=== PATIENT | female | born 1985 | race Two or more races ===

== ENCOUNTER 2016-08-04 15:28 | Emergency (ER) | payer OTHER ==
[2016-08-04] MEDS ORDERED: HYDROmorphone 1 MG/ML 1 ML SYRINGE IVP STA (15:42)
[2016-08-04] MEDS ORDERED: SODIUM CHLORIDE 0.9% 1,000 ML IV STA ×2 (15:42)
[2016-08-04] MEDS ORDERED: ONDANSETRON 4 MG/2 ML VIAL IVP STA (15:42)
[2016-08-04] MEDS ORDERED: KETOROLAC 30 MG/ML 1 ML VIAL IVP STA (15:42)
--- NOTE | 2016-08-04 15:45 | ED ---
General Adult HPI - General Chief complaint: Abdominal Pain Stated complaint: R side pain Time Seen by Provider: 08/04/16 15:37 Source: patient, RN notes reviewed Mode of arrival: ambulatory Limitations: no limitations - History of Present Illness Initial comments: Patient's a 31-year-old female is significant past medical history for kidney stones, who presents emergency room today with a chief complaint of right-sided flank pain that started this morning. Patient does admit that she's had increased pain and pressure on urination. She does admit that she believes she may have passed a kidney stone earlier today but is still having pain right flank area. She denies any other associated symptoms or complaints at this time. Patient denies any recent fever, chills, shortness of breath, chest pain, nausea or vomiting, numbness or tingling, constipation or diarrhea, headaches or visual changes, or any other complaints. - Related Data Previous Rx's Medication Instructions Recorded Ciprofloxacin HCl [Cipro] 500 mg PO Q12HR #14 tablet 12/09/15 Phenazopyridine [Pyridium] 100 mg PO TID #6 tablet 12/09/15 Hydrocodone/Acetaminophen [[place] 1 each PO Q6HR PRN #20 tab 08/04/16 5-325] Ibuprofen [Motrin] 600 mg PO Q6HR PRN #40 day 08/04/16 Ondansetron Odt [Zofran ODT] 4 mg PO Q8HR PRN #20 tab 08/04/16 Tamsulosin [Flomax] 0.4 mg PO DAILY #10 cap 08/04/16 Allergies Allergy/AdvReac Type Severity Reaction Status Date / Time Sulfa (Sulfonamide Allergy Severe hives Verified 12/09/15 18:16 Antibiotics) sulfamethoxazole Allergy Unknown Verified 12/09/15 18:16 [From Bactrim] trimethoprim [From Bactrim] Allergy Unknown Verified 12/09/15 18:16 Review of Systems ROS Statement: Those systems with pertinent positive or pertinent negative responses have been documented in the HPI. ROS Other: All systems not noted in ROS Statement are negative. Past Medical History Past Medical History: Thyroid Disorder Additional Past Medical History / Comment(s): kidney stone hospitalization History of Any Multi-Drug Resistant Organisms: None Reported Past Surgical History: Tubal Ligation Additional Past Surgical History / Comment(s): d&c Past Psychological History: Anxiety, Depression Smoking Status: Current every day smoker Past Alcohol Use History: Occasional Past Drug Use History: None Reported - Past Family History Mother Family Medical History: Cancer, Diabetes Mellitus General Exam - General Exam Comments Initial Comments: General: The patient is awake and alert, in no distress, and does not appear acutely ill. Eye: Pupils are equal, round and reactive to light, extra-ocular movements are intact. No nystagmus. There is normal conjunctiva bilaterally. No signs of icterus. Ears, nose, mouth and throat: There are moist mucous membranes and no oral lesions. Neck: The neck is supple, there is no tenderness or JVD. Cardiovascular: There is a regular rate and rhythm. No murmur, rub or gallop is appreciated. Respiratory: Lungs are clear to auscultation, respirations are non-labored, breath sounds are equal. No wheezes, stridor, rales, or rhonchi. Gastrointestinal: Soft, non-distended, non-tender abdomen without masses or organomegaly noted. There is no rebound or guarding present. No CVA tenderness. Bowel sounds are unremarkable. Musculoskeletal: Normal ROM, no tenderness. Strength 5/5. Sensation intact. Pulses equal bilaterally 2+. Neurological: A&O x 3. CN II-XII intact, There are no obvious motor or sensory deficits. Coordination appears grossly intact. Speech is normal. Skin: Skin is warm and dry and no rashes or lesions are noted. Psychiatric: Cooperative, appropriate mood & affect, normal judgment. Limitations: no limitations Course Vital Signs 08/04/16 08/04/16 15:34 16:52 Temperature 98.2 F 97.6 F Pulse Rate 101 H 70 Respiratory 20 16 Rate Blood Pressure 124/80 119/71 O2 Sat by Pulse 98 99 Oximetry Medical Decision Making - Medical Decision Making Patient reexamined at this time shows no signs of distress. Patient's labs have been reviewed. Small amount of blood in her urinalysis no sign of infection. Patient resting comfortable at this time. Does have history of kidney stones will be treated for kidney stone and advised follow-up with urology or return to emergency room if any symptoms increase or worsen or for any other concerns. - Lab Data Result diagrams: 08/04/16 16:00 08/04/16 16:00 Lab Results 08/04/16 08/04/16 08/04/16 Range/Units 16:00 16:00 16:00 WBC 9.2 (3.8-10.6) k/uL RBC 4.30 (3.80-5.40) m/uL Hgb 13.9 (11.4-16.0) gm/dL Hct 39.9 (34.0-46.0) % MCV 92.8 (80.0-100.0) fL MCH 32.4 (25.0-35.0) pg MCHC 35.0 (31.0-37.0) g/dL RDW 12.5 (11.5-15.5) % Plt Count 268 (150-450) k/uL Neutrophils % 65 % Lymphocytes % 26 % Monocytes % 4 % Eosinophils % 2 % Basophils % 1 % Neutrophils # 6.0 (1.3-7.7) k/uL Lymphocytes # 2.4 (1.0-4.8) k/uL Monocytes # 0.4 (0-1.0) k/uL Eosinophils # 0.2 (0-0.7) k/uL Basophils # 0.1 (0-0.2) k/uL Sodium 143 (137-145) mmol/L Potassium 4.2 (3.5-5.1) mmol/L Chloride 112 H (98-107) mmol/L Carbon Dioxide 21 L (22-30) mmol/L Anion Gap 10 mmol/L BUN 14 (7-17) mg/dL Creatinine 0.70 (0.52-1.04) mg/dL Est GFR (MDRD) Af Amer >60 (>60 ml/min/1.73 sqM) Est GFR (MDRD) Non-Af >60 (>60 ml/min/1.73 sqM) Glucose 89 (74-99) mg/dL Calcium 9.0 (8.4-10.2) mg/dL Total Bilirubin 0.4 (0.2-1.3) mg/dL AST 23 (14-36) U/L ALT 25 (9-52) U/L Alkaline Phosphatase 48 (38-126) U/L Total Protein 7.0 (6.3-8.2) g/dL Albumin 4.2 (3.5-5.0) g/dL Amylase 72 (30-110) U/L Lipase 121 (23-300) U/L Urine Color Urine Appearance (Clear) Urine pH (5.0-8.0) Ur Specific [place] (1.001-1.035) Urine Protein (Negative) Urine Glucose (UA) (Negative) Urine Ketones (Negative) Urine Blood (Negative) Urine Nitrite (Negative) Urine Bilirubin (Negative) Urine Urobilinogen (<2.0) mg/dL Ur Leukocyte Esterase (Negative) Urine RBC (0-5) /hpf Urine WBC (0-5) /hpf Ur Squamous Epith Cells (0-4) /hpf Urine Mucus (None) /hpf Urine HCG, Qual Not Detected (Not Detectd) 08/04/16 Range/Units 16:00 WBC (3.8-10.6) k/uL RBC (3.80-5.40) m/uL Hgb (11.4-16.0) gm/dL Hct (34.0-46.0) % MCV (80.0-100.0) fL MCH (25.0-35.0) pg MCHC (31.0-37.0) g/dL RDW (11.5-15.5) % Plt Count (150-450) k/uL Neutrophils % % Lymphocytes % % Monocytes % % Eosinophils % % Basophils % % Neutrophils # (1.3-7.7) k/uL Lymphocytes # (1.0-4.8) k/uL Monocytes # (0-1.0) k/uL Eosinophils # (0-0.7) k/uL Basophils # (0-0.2) k/uL Sodium (137-145) mmol/L Potassium (3.5-5.1) mmol/L Chloride (98-107) mmol/L Carbon Dioxide (22-30) mmol/L Anion Gap mmol/L BUN (7-17) mg/dL Creatinine (0.52-1.04) mg/dL Est GFR (MDRD) Af Amer (>60 ml/min/1.73 sqM) Est GFR (MDRD) Non-Af (>60 ml/min/1.73 sqM) Glucose (74-99) mg/dL Calcium (8.4-10.2) mg/dL Total Bilirubin (0.2-1.3) mg/dL AST (14-36) U/L ALT (9-52) U/L Alkaline Phosphatase (38-126) U/L Total Protein (6.3-8.2) g/dL Albumin (3.5-5.0) g/dL Amylase (30-110) U/L Lipase (23-300) U/L Urine Color Yellow Urine Appearance Clear (Clear) Urine pH 6.5 (5.0-8.0) Ur Specific [place] 1.018 (1.001-1.035) Urine Protein Negative (Negative) Urine Glucose (UA) Negative (Negative) Urine Ketones Negative (Negative) Urine Blood Moderate H (Negative) Urine Nitrite Negative (Negative) Urine Bilirubin Negative (Negative) Urine Urobilinogen <2.0 (<2.0) mg/dL Ur Leukocyte Esterase Trace H (Negative) Urine RBC 14 H (0-5) /hpf Urine WBC 3 (0-5) /hpf Ur Squamous Epith Cells 1 (0-4) /hpf Urine Mucus Rare H (None) /hpf Urine HCG, Qual (Not Detectd) Disposition Clinical Impression: Kidney stone Disposition: HOME SELF-CARE Condition: Good Instructions: Kidney Stones (ED) Additional Instructions: Please use medication as discussed. Please follow-up with family doctor in the next 2 days of symptoms have not improved. Please return to emergency room if the symptoms increase or worsen or for any other concerns. Prescriptions: Hydrocodone/Acetaminophen [[place] 5-325] 1 each PO Q6HR PRN #20 tab PRN Reason: Pain Ibuprofen [Motrin] 600 mg PO Q6HR PRN #40 day PRN Reason: Pain Ondansetron Odt [Zofran ODT] 4 mg PO Q8HR PRN #20 tab PRN Reason: Nausea Tamsulosin [Flomax] 0.4 mg PO DAILY #10 cap Referrals: Osmel Stallworth MD [Primary Care Provider] - 1-2 days Time of Disposition: 17:09
[2016-08-04 16:20] LABS: Basophils # (A) 0.1 k/uL (0-0.2); Basophils % (A) 1 %; CH 32.6; CHCM 35.3; Eosinophils # (A) 0.2 k/uL (0-0.7); Eosinophils % (A) 2 %; HCT 39.9 % (34.0-46.0); HDW 2.74; HGB 13.9 gm/dL (11.4-16.0); Luc # (Auto) 0.16; Luc % (Auto) 2; Lymphocytes # (A) 2.4 k/uL (1.0-4.8); Lymphocytes % (A) 26 %; MCH 32.4 pg (25.0-35.0); MCV 92.8 fL (80.0-100.0); Mean Platelet Volume 6.2; Monocytes # (A) 0.4 k/uL (0-1.0); Monocytes % (A) 4 %; Neutrophils % (A) 65 %; RDW 12.5 % (11.5-15.5); WBC 9.2 k/uL (3.8-10.6); WBC (Perox) 9.32
[2016-08-04 16:22] LABS: Appearance,Urine Clear (Clear); Bilirubin,Urine Negative (Negative); Glucose,Urine (UA) Negative (Negative); Ketones,Urine Negative (Negative); Leukocyte Esterase,Urine Trace (Negative); Mucus,Urine Rare /hpf; Nitrite,Urine Negative (Negative); PH, Urine 6.5 (5.0-8.0); Particle Count 1206; Protein,Urine Negative (Negative); RBC,Urine 14 /hpf (0-5); Specific Gravity,Urine 1.018 (1.001-1.035); Squamous Epithelial Cell,Urine 1 /hpf (0-4); UA Billing (MACRO vs. MICRO) MICRO; Urobilinogen,Urine <2.0 mg/dL (<2.0); WBC,Urine 3 /hpf (0-5)
[2016-08-04 16:29] LABS: ALT 25 U/L (9-52); AST 23 U/L (14-36); Alkaline Phosphatase 48 U/L (38-126); Amylase 72 U/L (30-110); Anion Gap 10 mmol/L; Blood Urea Nitrogen 14 mg/dL (7-17); Carbon Dioxide 21 mmol/L (22-30); Chloride 112 mmol/L (98-107); Glucose 89 mg/dL (74-99); Non-African American GFR(MDRD) >60 (>60 ml/min/1.73 sqM); Potassium 4.2 mmol/L (3.5-5.1); Sodium 143 mmol/L (137-145); Total Bilirubin 0.4 mg/dL (0.2-1.3)
--- NOTE | 2016-08-04 16:29 | XR ---
EXAMINATION TYPE: XR KUB DATE OF EXAM: 08/04/2016 4:19 PM COMPARISON: 04/12/2015 HISTORY: Pain TECHNIQUE: 2 views FINDINGS: There is no sign of intestinal obstruction or pneumoperitoneum. Fecal pattern is normal. Th ere is no sign of a mass. There are no pathologic calcifications over the right kidney. There is a 5 mm calcification over lower pole left kidney. IMPRESSION: Nonacute abdomen. Left renal calculus. No change compared to old exam.
[2016-08-04 16:53] VITALS: PULSE 70; RESP 16; TEMP 97.6
[2016-08-04 17:31] VITALS: BP 129/63
== END 2016-08-04 17:31 | disposition home or self-care (01) ==
LOC: EC 15:28
DX: N20.0 Calculus of kidney (principal); Z87.442 Personal history of urinary calculi; F17.200 Nicotine dependence, unspecified, uncomplicated; Z88.2 Allergy status to sulfonamides
CPT/HCPCS: 36415; 80053; 82150; 83690; 85025; 81001; 81025; 74000; 99284; 96374; 96375 ×2; 96361; J2405; J1885; J1170

== ENCOUNTER 2016-09-23 14:58 | Emergency (ER) | payer OTHER ==
[2016-09-23 15:16] VITALS: BP 123/77; PULSE 87; RESP 18; TEMP 98.6
[2016-09-23] MEDS ORDERED: HYDROcodone/APAP 5-325MG 1 EACH TAB PO STA (15:16)
--- NOTE | 2016-09-23 15:18 | ED ---
Back Pain HPI - General Chief Complaint: Back Pain/Injury Stated Complaint: Back Pain Time Seen by Provider: 09/23/16 15:12 Source: patient, RN notes reviewed Limitations: no limitations - History of Present Illness Initial Comments: 31-year-old female presents emergency Department chief complaint severe menstrual cramps. Patient states she has not had a menstrual cycle in 7 months and was just taken off her control she had a tubal ligation in the past. Patient states that she started bleeding this morning is had severe cramping with it. Denies fever, chills, dysuria, flank pain, nausea vomiting diarrhea constipation. She states she tried Midol, Tylenol, ibuprofen without relief. Patient states that she is under she did have severe cramping. Patient denies any recent abdominal surgeries. - Related Data Previous Rx's Medication Instructions Recorded Hydrocodone/Acetaminophen [[place] 1 tab PO Q6HR PRN #15 tab 09/23/16 5-325] Allergies Allergy/AdvReac Type Severity Reaction Status Date / Time Sulfa (Sulfonamide Allergy Severe hives Verified 09/23/16 15:16 Antibiotics) sulfamethoxazole Allergy Unknown Verified 09/23/16 15:16 [From Bactrim] trimethoprim [From Bactrim] Allergy Unknown Verified 09/23/16 15:16 Review of Systems ROS Statement: Those systems with pertinent positive or pertinent negative responses have been documented in the HPI. ROS Other: All systems not noted in ROS Statement are negative. Past Medical History Past Medical History: Thyroid Disorder Additional Past Medical History / Comment(s): kidney stone hospitalization History of Any Multi-Drug Resistant Organisms: None Reported Past Surgical History: Tubal Ligation Additional Past Surgical History / Comment(s): d&c Past Psychological History: Anxiety, Depression Smoking Status: Current every day smoker Past Alcohol Use History: Occasional Past Drug Use History: None Reported - Past Family History Mother Family Medical History: Cancer, Diabetes Mellitus General Exam Limitations: no limitations General appearance: alert, in no apparent distress Head exam: Present: atraumatic, normocephalic, normal inspection Respiratory exam: Present: normal lung sounds bilaterally. Absent: respiratory distress, wheezes, rales, rhonchi, stridor Cardiovascular Exam: Present: regular rate, normal rhythm, normal heart sounds. Absent: systolic murmur, diastolic murmur, rubs, gallop, clicks GI/Abdominal exam: Present: soft, normal bowel sounds. Absent: distended, tenderness, guarding, rebound, rigid Extremities exam: Present: normal inspection, full ROM, normal capillary refill. Absent: tenderness, pedal edema, joint swelling, calf tenderness Back exam: Present: normal inspection, full ROM. Absent: tenderness, CVA tenderness (R), CVA tenderness (L), muscle spasm, paraspinal tenderness, vertebral tenderness Neurological exam: Present: alert, oriented X3, CN II-XII intact Skin exam: Present: warm, dry, intact, normal color. Absent: rash Course Vital Signs 09/23/16 15:12 Temperature 98.6 F Pulse Rate 87 Respiratory 18 Rate Blood Pressure 123/77 O2 Sat by Pulse 99 Oximetry Medical Decision Making - Medical Decision Making 31-year-old female presents emergency Department with chief complaint of severe menstrual cramps. Patient is exam is benign vitals are stable. Patient has no acute evidence of infection no CVA tenderness no abdominal tenderness with palpation. Patient given pain medication for dysmenorrhea. Patient will be advised to follow up with PCP return parameters discussed. Disposition Clinical Impression: Dysmenorrhea Disposition: HOME SELF-CARE Condition: Stable Instructions: Dysmenorrhea (ED) Additional Instructions: Please return to the Emergency Department if symptoms worsen or any other concerns. Prescriptions: Hydrocodone/Acetaminophen [[place] 5-325] 1 tab PO Q6HR PRN #15 tab PRN Reason: Pain Referrals: Raya Aquino MD [Primary Care Provider] - 1-2 days Time of Disposition: 15:18
== END 2016-09-23 15:35 | disposition home or self-care (01) ==
LOC: EC 14:58
DX: N94.6 Dysmenorrhea, unspecified (principal); F17.200 Nicotine dependence, unspecified, uncomplicated; Z88.2 Allergy status to sulfonamides; Z98.51 Tubal ligation status
CPT/HCPCS: 99283

== ENCOUNTER 2016-10-20 11:49 | Emergency (ER) | payer OTHER ==
[2016-10-20 11:55] VITALS: BP 110/74; PULSE 79; RESP 20; TEMP 98.1
--- NOTE | 2016-10-20 12:07 | ED ---
General Adult HPI - General Chief complaint: Anxiety Stated complaint: mental health Time Seen by Provider: 10/20/16 11:50 Source: patient, RN notes reviewed Mode of arrival: ambulatory Limitations: no limitations - History of Present Illness Initial comments: This is a 31-year-old female who presents emergency department with past HISTORY for insomnia anxiety and depression. Patient states when she switched doctors recently they stopped her Celexa and Xanax and trazodone. Patient states she was put on Abilify patient states Abilify has not worked for sleep and does not seem to be helping her anxiety. Patient states when she gets really anxious and depressed gets suicidal and she does not want to get to the point that she is here to have her prescriptions filled until she can follow-up with the psychiatrist for which she has an appointment in about 1 month. Patient states she's can switch back to Dr. Blake in because he did prescribe her these medications. Patient denies any suicidal homicidal thoughts currently. Patient denies any physical complaints today. Patient denies headache patient denies numbness weakness. Patient denies chest pain difficulty breathing first breath per patient denies any recent fever chills or cough. Patient denies abdominal pain patient denies nausea vomiting diarrhea. - Related Data Previous Rx's Medication Instructions Recorded Hydrocodone/Acetaminophen [[place] 1 tab PO Q6HR PRN #15 tab 09/23/16 5-325] ALPRAZolam [Xanax] 0.5 mg PO BID PRN #20 tablet 10/20/16 Citalopram Hydrobromide [CeleXA] 40 mg PO DAILY #10 tab 10/20/16 Allergies Allergy/AdvReac Type Severity Reaction Status Date / Time Sulfa (Sulfonamide Allergy Severe hives Verified 10/20/16 11:55 Antibiotics) sulfamethoxazole Allergy Unknown Verified 10/20/16 11:55 [From Bactrim] trimethoprim [From Bactrim] Allergy Unknown Verified 10/20/16 11:55 Review of Systems ROS Statement: Those systems with pertinent positive or pertinent negative responses have been documented in the HPI. ROS Other: All systems not noted in ROS Statement are negative. Past Medical History Past Medical History: Thyroid Disorder Additional Past Medical History / Comment(s): kidney stone hospitalization History of Any Multi-Drug Resistant Organisms: None Reported Past Surgical History: Tubal Ligation Additional Past Surgical History / Comment(s): d&c Past Psychological History: Anxiety, Depression Smoking Status: Current every day smoker Past Alcohol Use History: Occasional Past Drug Use History: None Reported - Past Family History Mother Family Medical History: Cancer, Diabetes Mellitus General Exam - General Exam Comments Initial Comments: GENERAL: Patient is well-developed and well-nourished. Patient is nontoxic and well- hydrated and is in no acute distress. EYES: The sclera were anicteric and conjunctiva were pink and moist. SKIN: Skin is clear with no lesions or rashes and otherwise unremarkable. NEUROLOGIC: Patient is alert and oriented x3. Cranial nerves II through XII are grossly intact. Motor and sensory are also intact. Normal speech, volume and content. Symmetrical smile. MUSCULOSKELETAL: Normal extremities with adequate strength and full range of motion. No lower extremity swelling or edema. No calf tenderness. LYMPHATICS: No significant lymphadenopathy is noted PSYCHIATRIC: Patient is mildly anxious Limitations: no limitations Course Vital Signs 10/20/16 11:51 Temperature 98.1 F Pulse Rate 79 Respiratory 20 Rate Blood Pressure 110/74 O2 Sat by Pulse 98 Oximetry Disposition Clinical Impression: Anxiety, History of depression Disposition: HOME SELF-CARE Condition: Good Instructions: Generalized Anxiety Disorder (ED) Prescriptions: ALPRAZolam [Xanax] 0.5 mg PO BID PRN #20 tablet PRN Reason: Anxiety Citalopram Hydrobromide [CeleXA] 40 mg PO DAILY #10 tab Referrals: Raya Aquino MD [Primary Care Provider] - 1-2 days Time of Disposition: 12:07
== END 2016-10-20 12:40 | disposition home or self-care (01) ==
LOC: EC 11:49
DX: F41.9 Anxiety disorder, unspecified (principal); F32.9 Major depressive disorder, single episode, unspecified; F17.200 Nicotine dependence, unspecified, uncomplicated; Z88.2 Allergy status to sulfonamides
CPT/HCPCS: 99283

== ENCOUNTER 2016-12-16 20:18 | Emergency (ER) | payer OTHER ==
[2016-12-16 20:51] VITALS: BP 119/65; PULSE 76; RESP 16; TEMP 99
[2016-12-16] MEDS ORDERED: AZITHROMYCIN 500 MG TAB PO STA (21:44)
[2016-12-16] MEDS ORDERED: cefTRIAXone 250 MG VIAL IM STA (21:44)
[2016-12-16] MEDS ORDERED: metroNIDAZOLE 500 MG TAB PO STA (21:44)
--- NOTE | 2016-12-16 22:01 | ED ---
Female Urogenital HPI - General Chief complaint: Urogenital Stated complaint: Vaginal Pain Time Seen by Provider: 12/16/16 21:24 Source: patient Mode of arrival: ambulatory Limitations: no limitations - History of Present Illness Initial comments: patient presents with pain in her vaginal area & discharge. Patient states she has a history of genital warts, was given medication to "burn them off" one week ago. Patient states she took the medication for 3 days, however continues to have pain in the area. Patient states she was seen at [facility] emergency room for the continued pain, was prescribed [id number] medications including topical zinc. Patient states she has not been able to afford the [id number] medications, as she has no money. Patient states that she has also had milky white vaginal discharge that is odorous. Denies vaginal bleeding. Denies . Patient denies history of STDs other than genital herpes. Patient sexually active with one partner, who is here during the visit today. MD Complaint: vaginal discharge, possible STD Onset/Timin -: week(s) Severity: moderate Severity scale (1-10): 5 Quality: burning Consistency: constant Patient : No Associated Symptoms: denies other symptoms - Related Data Sexually active: Yes Home Medications Medication Instructions Recorded Confirmed ARIPiprazole [Abilify] 10 mg PO DAILY 12/16/16 12/16/16 Acyclovir [Zovirax] 200 mg PO DAILY 12/16/16 12/16/16 Ibuprofen [Motrin] 400 mg PO BID PRN 12/16/16 12/16/16 Levothyroxine Sodium [Synthroid] 25 mcg PO DAILY 12/16/16 12/16/16 Previous Rx's Medication Instructions Recorded Citalopram Hydrobromide [CeleXA] 40 mg PO DAILY #10 tab 10/20/16 Allergies Allergy/AdvReac Type Severity Reaction Status Date / Time Sulfa (Sulfonamide Allergy Severe hives Verified 12/16/16 21:49 Antibiotics) sulfamethoxazole Allergy Unknown Verified 12/16/16 21:49 [From Bactrim] trimethoprim [From Bactrim] Allergy Unknown Verified 12/16/16 21:49 Review of Systems ROS Statement: Those systems with pertinent positive or pertinent negative responses have been documented in the HPI. ROS Other: All systems not noted in ROS Statement are negative. Constitutional: Denies: fever, chills, weakness Eyes: Denies: vision change ENT: Denies: throat pain, congestion Respiratory: Denies: cough, dyspnea Cardiovascular: Denies: chest pain, palpitations Endocrine: Denies: fatigue Gastrointestinal: Denies: abdominal pain, nausea, vomiting, diarrhea, constipation Genitourinary: Reports: dysuria, discharge, dyspareunia. Denies: urgency, frequency, hematuria, abnormal menses Skin: Reports: lesions, pruritus. Denies: rash Neurological: Denies: headache, weakness, numbness Past Medical History Past Medical History: Thyroid Disorder Additional Past Medical History / Comment(s): kidney stone hospitalization History of Any Multi-Drug Resistant Organisms: None Reported Past Surgical History: Tubal Ligation Additional Past Surgical History / Comment(s): d&c Past Psychological History: Anxiety, Depression Smoking Status: Current every day smoker Past Alcohol Use History: Occasional Past Drug Use History: None Reported - Past Family History Mother Family Medical History: Cancer, Diabetes Mellitus General Exam - General Exam Comments Initial Comments: sitting up on bed. Patient is tearful. Conversing normally. Not ill appearing. Limitations: no limitations General appearance: alert, anxious Head exam: Present: atraumatic, normocephalic Eye exam: Present: normal appearance, PERRL, EOMI ENT exam: Present: normal external ear exam Neck exam: Present: normal inspection Respiratory exam: Present: normal lung sounds bilaterally. Absent: respiratory distress, wheezes, rales Cardiovascular Exam: Present: regular rate, normal rhythm GI/Abdominal exam: Present: soft. Absent: distended, tenderness, guarding, rebound, rigid External exam: Present: lesions, other (patient appears to have healing vesicular lesions around major and minor labia, no active discharge or bleeding. ) Speculum exam: Present: vaginal discharge, cervical discharge, other (patient with clumped white milky discharge on speculum exam. Appropriate tenderness, no masses appreciated.). Absent: vaginal bleeding By manual exam: Absent: cervical motion tenderness, adnexal tenderness, adnexal mass Neurological exam: Present: alert, oriented X3 Skin exam: Present: vesicles Course Vital Signs 12/16/16 20:48 Temperature 99 F Pulse Rate 76 Respiratory 16 Rate Blood Pressure 119/65 O2 Sat by Pulse 98 Oximetry Medical Decision Making - Medical Decision Making patient is status post treatment for external genital herpes lesions. They appear to be healing at this time. Patient has vaginal discharge, swabs sent to lab. Patient agrees to receive prophylactic treatment for STI's. Patient's sexual partner at bedside advised to be treated with antibiotics. Patient and sexual partner advised not to have sex until both partners are treated and asymptomatic. Pt provided call back number for culture results, phone #[phone]. urinalysis shows no sign of infection, test negative. Patient updated without results. Feels comfortable going home at this time. Patient given prophylactic antibiotics in the ER. We'll call patient back if any positive results on cultures. Patient to follow up with primary care physician, states she has one that she will follow-up with. Return to ED if new or worsening symptoms. Patient understands and agrees. Patient discharged home. - Lab Data Lab Results 12/16/16 12/16/16 12/16/16 Range/Units 21:48 21:48 21:48 Urine Color Yellow Urine Appearance Clear (Clear) Urine pH 5.5 (5.0-8.0) Ur Specific [place] 1.020 (1.001-1.035) Urine Protein Negative (Negative) Urine Glucose (UA) Negative (Negative) Urine Ketones Negative (Negative) Urine Blood Small H (Negative) Urine Nitrite Negative (Negative) Urine Bilirubin Negative (Negative) Urine Urobilinogen <2.0 (<2.0) mg/dL Ur Leukocyte Esterase Negative (Negative) Urine RBC 1 (0-5) /hpf Urine WBC 4 (0-5) /hpf Ur Squamous Epith Cells 1 (0-4) /hpf Urine HCG, Qual Not Detected (Not Detectd) Trichomonas Ag (Rapid) Negative (Negative) Disposition Clinical Impression: Vaginal discharge Disposition: HOME SELF-CARE Condition: Good Instructions: Sexually Transmitted Diseases (ED), Vaginal Discharge (ED) Referrals: Raya Aquino MD [Primary Care Provider] - 1-2 days
[2016-12-16 22:02] LABS: Appearance,Urine Clear (Clear); Bilirubin,Urine Negative (Negative); Glucose,Urine (UA) Negative (Negative); Ketones,Urine Negative (Negative); Leukocyte Esterase,Urine Negative (Negative); Nitrite,Urine Negative (Negative); PH, Urine 5.5 (5.0-8.0); Particle Count 438; Protein,Urine Negative (Negative); RBC,Urine 1 /hpf (0-5); Squamous Epithelial Cell,Urine 1 /hpf (0-4); UA Billing (MACRO vs. MICRO) MICRO; Urobilinogen,Urine <2.0 mg/dL (<2.0); WBC,Urine 4 /hpf (0-5)
== END 2016-12-16 22:47 | disposition home or self-care (01) ==
LOC: EC 20:18
DX: N89.8 Other specified noninflammatory disorders of vagina (principal); F32.9 Major depressive disorder, single episode, unspecified; E07.9 Disorder of thyroid, unspecified; F17.200 Nicotine dependence, unspecified, uncomplicated; Z32.02 Encounter for pregnancy test, result negative; Z98.51 Tubal ligation status; Z98.890 Other specified postprocedural states; Z88.2 Allergy status to sulfonamides; Z79.899 Other long term (current) drug therapy
CPT/HCPCS: 99283 ×2; 96372 ×2; 87591; 87491; 81001; 81025; 87808; 87070; J0696; 87205

== ENCOUNTER 2018-01-19 08:04 | Emergency (ER) | payer BC, OTHER ==
[2018-01-19 08:11] VITALS: RESP 18
[2018-01-19] MEDS ORDERED: SODIUM CHLORIDE 0.9% 1,000 ML IV STA (08:27)
[2018-01-19] MEDS ORDERED: KETOROLAC 30 MG/ML 1 ML VIAL IVP STA ×2 (08:27→11:54)
[2018-01-19] MEDS ORDERED: SODIUM CHLORIDE 0.9% 500 ML 500 ML IV STA (08:27)
--- NOTE | 2018-01-19 08:27 | ED ---
Abdominal Pain HPI - General Chief Complaint: Abdominal Pain Stated Complaint: flank pain Time Seen by Provider: 01/19/18 08:04 Source: patient, EMS, RN notes reviewed Mode of arrival: EMS Limitations: no limitations - History of Present Illness Initial Comments: This is a 32-year-old female with a history of tubal ligation and kidney stones in the past who states she had the onset 3 days ago of right-sided flank pain that now is severe 10/10 sharp in nature and radiates down into her right leg actually. She feels like her bladder is full she's had some dysuria some different smell in her urine. Some frequency. She states it does feel for the most part like previous episodes of kidney stones. He hasn't sweats no fevers or chills. No trauma no other modifying factors MD Complaint: flank pain - Related Data Home Medications Medication Instructions Recorded Confirmed Ibuprofen [Motrin Ib] 400 mg PO Q6H PRN 01/19/18 01/19/18 Previous Rx's Medication Instructions Recorded Hydrocodone/Acetaminophen [[place] 1 each PO Q6HR PRN #20 tab 01/19/18 5-325] Ibuprofen 800 mg PO Q6HR PRN #20 tablet 01/19/18 Allergies Allergy/AdvReac Type Severity Reaction Status Date / Time Sulfa (Sulfonamide Allergy Severe hives Verified 01/19/18 08:34 Antibiotics) sulfamethoxazole Allergy Unknown Verified 01/19/18 08:34 [From Bactrim] trimethoprim [From Bactrim] Allergy Unknown Verified 01/19/18 08:34 Review of Systems ROS Statement: Those systems with pertinent positive or pertinent negative responses have been documented in the HPI. ROS Other: All systems not noted in ROS Statement are negative. Past Medical History Past Medical History: Thyroid Disorder Additional Past Medical History / Comment(s): kidney stone hospitalization History of Any Multi-Drug Resistant Organisms: None Reported Past Surgical History: Tubal Ligation Additional Past Surgical History / Comment(s): d&c Past Psychological History: Anxiety, Depression Smoking Status: Current every day smoker Past Alcohol Use History: Occasional Past Drug Use History: None Reported - Past Family History Mother Family Medical History: Cancer, Diabetes Mellitus General Exam - General Exam Comments Initial Comments: This is a well-developed well-nourished awake alert oriented 3 female Limitations: no limitations General appearance: alert, anxious Head exam: Present: atraumatic, normocephalic, normal inspection Eye exam: Present: normal appearance, PERRL, EOMI. Absent: scleral icterus, conjunctival injection, periorbital swelling ENT exam: Present: normal exam, mucous membranes moist Neck exam: Present: normal inspection. Absent: tenderness, meningismus, lymphadenopathy Respiratory exam: Present: normal lung sounds bilaterally. Absent: respiratory distress, wheezes, rales, rhonchi, stridor Cardiovascular Exam: Present: regular rate, normal rhythm, normal heart sounds. Absent: systolic murmur, diastolic murmur, rubs, gallop, clicks GI/Abdominal exam: Present: soft, tenderness (Mild right flank tenderness), normal bowel sounds. Absent: distended, guarding, rebound, rigid, bruit, pulsatile mass, hernia Rectal exam: Present: deferred Extremities exam: Present: normal inspection, full ROM, normal capillary refill. Absent: tenderness, pedal edema, joint swelling, calf tenderness Back exam: Present: normal inspection, CVA tenderness (R), other (Mild right SI joint area tenderness no step-off or crepitation) Neurological exam: Present: alert, oriented X3, CN II-XII intact Psychiatric exam: Present: normal affect, anxious Skin exam: Present: warm, dry, intact, normal color. Absent: rash Course Vital Signs 01/19/18 08:07 Temperature 98.3 F Pulse Rate 71 Respiratory 18 Rate Blood Pressure 125/70 O2 Sat by Pulse 97 Oximetry Medical Decision Making - Medical Decision Making Patient initially get some improvement in the pain she's having some increased pain the clinical presentation consistent with a passed urinary stone additionally she does have multiple kidney stones. She will be discharged on appropriate medication she is up with her doctor return when necessary we did also discuss so pop she does consume large amounts of soda pop. It was recommended that she - Lab Data Result diagrams: 01/19/18 08:08 01/19/18 08:08 Lab Results 01/19/18 01/19/18 01/19/18 Range/Units 08:08 08:08 08:08 WBC 6.6 (3.8-10.6) k/uL RBC 4.81 (3.80-5.40) m/uL Hgb 14.9 (11.4-16.0) gm/dL Hct 43.2 (34.0-46.0) % MCV 89.8 (80.0-100.0) fL MCH 31.0 (25.0-35.0) pg MCHC 34.5 (31.0-37.0) g/dL RDW 12.4 (11.5-15.5) % Plt Count 221 (150-450) k/uL Neutrophils % 58 % Lymphocytes % 33 % Monocytes % 5 % Eosinophils % 2 % Basophils % 1 % Neutrophils # 3.8 (1.3-7.7) k/uL Lymphocytes # 2.2 (1.0-4.8) k/uL Monocytes # 0.3 (0-1.0) k/uL Eosinophils # 0.2 (0-0.7) k/uL Basophils # 0.0 (0-0.2) k/uL Sodium 142 (137-145) mmol/L Potassium 4.0 (3.5-5.1) mmol/L Chloride 111 H (98-107) mmol/L Carbon Dioxide 24 (22-30) mmol/L Anion Gap 7 mmol/L BUN 12 (7-17) mg/dL Creatinine 0.62 (0.52-1.04) mg/dL Est GFR (CKD-EPI)AfAm >90 (>60 ml/min/1.73 sqM) Est GFR (CKD-EPI)NonAf >90 (>60 ml/min/1.73 sqM) Glucose 106 H (74-99) mg/dL Calcium 9.3 (8.4-10.2) mg/dL Total Bilirubin 0.5 (0.2-1.3) mg/dL AST 18 (14-36) U/L ALT 24 (9-52) U/L Alkaline Phosphatase 67 (38-126) U/L Total Protein 6.9 (6.3-8.2) g/dL Albumin 4.0 (3.5-5.0) g/dL Amylase 55 (30-110) U/L Lipase 64 (23-300) U/L Urine Color Urine Appearance (Clear) Urine pH (5.0-8.0) Ur Specific [place] (1.001-1.035) Urine Protein (Negative) Urine Glucose (UA) (Negative) Urine Ketones (Negative) Urine Blood (Negative) Urine Nitrite (Negative) Urine Bilirubin (Negative) Urine Urobilinogen (<2.0) mg/dL Ur Leukocyte Esterase (Negative) Urine RBC (0-5) /hpf Urine WBC (0-5) /hpf Ur Squamous Epith Cells (0-4) /hpf Urine Bacteria (None) /hpf Urine Mucus (None) /hpf Urine HCG, Qual Not Detected (Not Detectd) 01/19/18 Range/Units 08:08 WBC (3.8-10.6) k/uL RBC (3.80-5.40) m/uL Hgb (11.4-16.0) gm/dL Hct (34.0-46.0) % MCV (80.0-100.0) fL MCH (25.0-35.0) pg MCHC (31.0-37.0) g/dL RDW (11.5-15.5) % Plt Count (150-450) k/uL Neutrophils % % Lymphocytes % % Monocytes % % Eosinophils % % Basophils % % Neutrophils # (1.3-7.7) k/uL Lymphocytes # (1.0-4.8) k/uL Monocytes # (0-1.0) k/uL Eosinophils # (0-0.7) k/uL Basophils # (0-0.2) k/uL Sodium (137-145) mmol/L Potassium (3.5-5.1) mmol/L Chloride (98-107) mmol/L Carbon Dioxide (22-30) mmol/L Anion Gap mmol/L BUN (7-17) mg/dL Creatinine (0.52-1.04) mg/dL Est GFR (CKD-EPI)AfAm (>60 ml/min/1.73 sqM) Est GFR (CKD-EPI)NonAf (>60 ml/min/1.73 sqM) Glucose (74-99) mg/dL Calcium (8.4-10.2) mg/dL Total Bilirubin (0.2-1.3) mg/dL AST (14-36) U/L ALT (9-52) U/L Alkaline Phosphatase (38-126) U/L Total Protein (6.3-8.2) g/dL Albumin (3.5-5.0) g/dL Amylase (30-110) U/L Lipase (23-300) U/L Urine Color Light Yellow Urine Appearance Cloudy H (Clear) Urine pH 6.0 (5.0-8.0) Ur Specific [place] 1.007 (1.001-1.035) Urine Protein Negative (Negative) Urine Glucose (UA) Negative (Negative) Urine Ketones Negative (Negative) Urine Blood Trace H (Negative) Urine Nitrite Negative (Negative) Urine Bilirubin Negative (Negative) Urine Urobilinogen <2.0 (<2.0) mg/dL Ur Leukocyte Esterase Trace H (Negative) Urine RBC 1 (0-5) /hpf Urine WBC 3 (0-5) /hpf Ur Squamous Epith Cells 15 H (0-4) /hpf Urine Bacteria Rare H (None) /hpf Urine Mucus Rare H (None) /hpf Urine HCG, Qual (Not Detectd) - Radiology Data Radiology results: report reviewed (I did review the imaging and report no acute findings. There is evidence of a possible passed stone multiple kidney stone was seen in both kidneys no overt obstruction seen.), image reviewed Disposition Clinical Impression: Renal colic on right side, Kidney stones Disposition: HOME SELF-CARE Condition: Good Instructions: Renal Colic (ED), Kidney Stones (ED), Flank Pain (ED) Prescriptions: Hydrocodone/Acetaminophen [[place] 5-325] 1 each PO Q6HR PRN #20 tab PRN Reason: Pain Ibuprofen 800 mg PO Q6HR PRN #20 tablet PRN Reason: Pain Is patient prescribed a controlled substance at d/c from ED?: Yes When asked, does pt state using other controlled substances?: No If prescribed controlled substance>3 days was MAPS reviewed?: Yes If Rx opioid, was Start Talking consent form obtained?: Yes Referrals: Tracey Shaikh MD [Primary Care Provider] - 1-2 days
[2018-01-19 09:11] LABS: Basophils % (A) 1 %; Eosinophils # (A) 0.2 k/uL (0-0.7); Eosinophils % (A) 2 %; HCT 43.2 % (34.0-46.0); HGB 14.9 gm/dL (11.4-16.0); Lymphocytes # (A) 2.2 k/uL (1.0-4.8); Lymphocytes % (A) 33 %; MCHC 34.5 g/dL (31.0-37.0); MCV 89.8 fL (80.0-100.0); Mean Platelet Volume 6.3; Monocytes # (A) 0.3 k/uL (0-1.0); Monocytes % (A) 5 %; Neutrophils # (A) 3.8 k/uL (1.3-7.7); Neutrophils % (A) 58 %; Platelet Count 221 k/uL (150-450); RBC 4.81 m/uL (3.80-5.40); RDW 12.4 % (11.5-15.5); WBC 6.6 k/uL (3.8-10.6)
[2018-01-19 09:18] LABS: Appearance,Urine Cloudy (Clear); Bacteria,Urine Rare /hpf; Bilirubin,Urine Negative (Negative); Blood,Urine Trace (Negative); Color,Urine Light Yellow; Glucose,Urine (UA) Negative (Negative); Ketones,Urine Negative (Negative); Leukocyte Esterase,Urine Trace (Negative); Mucus,Urine Rare /hpf; Nitrite,Urine Negative (Negative); Protein,Urine Negative (Negative); RBC,Urine 1 /hpf (0-5); Specific Gravity,Urine 1.007 (1.001-1.035); Squamous Epithelial Cell,Urine 15 /hpf (0-4); Urobilinogen,Urine <2.0 mg/dL (<2.0); WBC,Urine 3 /hpf (0-5)
[2018-01-19 09:24] LABS: ALT 24 U/L (9-52); AST 18 U/L (14-36); Alkaline Phosphatase 67 U/L (38-126); Amylase 55 U/L (30-110); Anion Gap 7 mmol/L; Blood Urea Nitrogen 12 mg/dL (7-17); Calcium 9.3 mg/dL (8.4-10.2); Carbon Dioxide 24 mmol/L (22-30); Chloride 111 mmol/L (98-107); Glucose 106 mg/dL (74-99); Lipase 64 U/L (23-300); Sodium 142 mmol/L (137-145); Total Bilirubin 0.5 mg/dL (0.2-1.3); Total Protein 6.9 g/dL (6.3-8.2)
--- NOTE | 2018-01-19 09:33 | XR ---
Abdomen HISTORY: Pain Frontal view of the abdomen on 2 images correlated prior exam 07/27/2016 Calcification again noted over the left kidney measuring approximately 6 to 7 mm in greatest dimensio n. Lung bases are clear. There is no pneumoperitoneum or bowel obstruction. Fallopian tubal ligation clips are noted. Indeterminate calcifications present within the pelvis as on prior. Bone mineralizat ion is normal. Bowel gas may obscure detail. IMPRESSION: Left-sided nephrolithiasis.
--- NOTE | 2018-01-19 10:41 | CT ---
EXAMINATION TYPE: CT abdomen pelvis wo con DATE OF EXAM: 01/19/2018 COMPARISON: 12/09/2015 INDICATION: Right Flank pain, radiating down right leg DLP: 463 mGycm, Automated exposure control for dose reduction was used. CONTRAST: 0 mL of Isovue 300. Study performed without Oral Contrast TECHNIQUE: Axial images were obtained from above the diaphragm to the pubic rami in the axial plane a t 5 mm thick sections. Reconstructed images are reviewed on the computer in the coronal plane. FINDINGS: Limited CT sections are obtained the lung bases. The lung bases are clear. CT ABDOMEN: Liver: Normal Spleen: Normal Pancreas: Normal Adrenal glands: The adrenal glands are normal. Gallbladder: Normal Kidneys: No masses are evident. No hydronephrosis is present. Minimal bilateral hydroureter may be present. No obstructing renal or ureteral stones are evident. There are multiple calcifications withi n the bilateral kidneys. This would include on the right and inferior pole 0.3 cm calcification, a 0. 2 cm calcification in the medial mid right kidney, 2 0.2 cm calcifications in the mid upper pole, and a 0.2 cm calcification at superior pole right kidney. On the left there is a 0.2 cm superior pole ca lcification, 0.2 cm anterior mid upper pole stone, a 0.2 cm mid anterior renal stone, a 0.4 cm calcif ication at the mid to inferior pole. Additional bilateral areas of increased density which may be colt e very subtle calcifications may be present. Consider medullary sponge kidney within the differential . No cysts are present. No obstructing ureteral stones are identified. Urinary bladder appears clear . Recent passage of a small stone is not excluded. Aorta: Normal Inferior vena cava: Normal. CT PELVIS: There are 2 surgical clips within the pelvis. One clip is somewhat posterior in an unusual location for tubal ligation clip. Correlate with the patient's surgical history. Loops of bowel within the abdomen and pelvis are normal. There are loops of bowel which are incom pletely distended or lack oral contrast limiting their evaluation. Appendix: Normal as visualized. Urinary bladder: Normal. Genitourinary structures: Uterus and adnexal regions appear within normal limits. No free fluid is wi thin the pelvis. Osseous structures: No suspicious lytic or sclerotic lesions. IMPRESSIONS: 1. Multiple bilateral nonobstructing renal stones. 2. There may be some mild hydroureter. Recent passage of a calcification is not excluded. 3. Correlate with clip location within the CT pelvis for tubal ligation
[2018-01-19] MEDS ORDERED: MORPHINE SULFATE 4 MG/ML SYRINGE IVP STA (11:54)
[2018-01-19 12:29] VITALS: BP 105/68; PULSE 60; TEMP 97.3
== END 2018-01-19 12:36 | disposition home or self-care (01) ==
LOC: EC 08:04
DX: N20.0 Calculus of kidney (principal); M79.604 Pain in right leg; F17.200 Nicotine dependence, unspecified, uncomplicated; Z88.2 Allergy status to sulfonamides; Z98.51 Tubal ligation status
CPT/HCPCS: 36415; 80053; 82150; 83690; 85025; 81001; 81025; 74018; 74176; 99285; 96374; 96375; 96376; 96361 ×3; J2270; J1885

== ENCOUNTER 2018-08-27 01:09 | Emergency (ER) | payer OTHER ==
[2018-08-27 01:12] VITALS: TEMP 98.2
[2018-08-27] MEDS ORDERED: ONDANSETRON 4 MG/2 ML VIAL IVP STA (01:19)
[2018-08-27] MEDS ORDERED: SODIUM CHLORIDE 0.9% 1,000 ML IV STA (01:20)
--- NOTE | 2018-08-27 01:26 | ED ---
General Adult HPI - General Chief complaint: Nausea/Vomiting/Diarrhea Stated complaint: NVD Time Seen by Provider: 08/27/18 01:13 Source: patient, EMS, RN notes reviewed, old records reviewed Mode of arrival: EMS Limitations: no limitations - History of Present Illness Initial comments: 33 year old female patient past medical history of renal calculi, status post tubal ligation presents to ED with 1 day of nausea vomiting diarrhea. Patient force of this began this morning. Patient reports that she has also had some minor fevers and chills. Patient denies any abdominal pain. Patient denies any cough, congestion, upper respiratory symptoms. Denies any pain with urination. Denies any other complaints. Systemic: Pt denies fatigue, fever/chills, rash. Pt denies weakness, night sweats, weight loss. Neuro: Pt denies headache, visual disturbances, syncope or pre-syncope. HEENT: Pt denies ocular discharge or irritation, otalgia, rhinorrhea, pharyngitis or notable lymphadenopathy. Cardiopulmonary: Pt denies chest pain, SOB, heart palpitations, dyspnea on exertion. Abdominal/GI: Pt denies abdominal pain. : Pt denies dysuria, burning w/ urination, frequency/urgency. Denies new onset urinary or bowel incontinence. MSK: Pt denies myalgia, loss of strength or function in extremities. Neuro: Pt denies new onset weakness, paresthesias. - Related Data Home Medications Medication Instructions Recorded Confirmed Ibuprofen [Motrin Ib] 400 mg PO Q6H PRN 01/19/18 01/19/18 Previous Rx's Medication Instructions Recorded Hydrocodone/Acetaminophen [[place] 1 each PO Q6HR PRN #20 tab 01/19/18 5-325] Ibuprofen 800 mg PO Q6HR PRN #20 tablet 01/19/18 Albuterol Inhaler [Ventolin Hfa 2 puff INHALATION Q4HR PRN #1 06/06/18 Inhaler] inhaler Ondansetron Odt [Zofran ODT] 4 mg PO Q8HR PRN #20 tab 08/27/18 Allergies Allergy/AdvReac Type Severity Reaction Status Date / Time Sulfa (Sulfonamide Allergy Severe hives Verified 08/27/18 01:12 Antibiotics) sulfamethoxazole Allergy Unknown Verified 08/27/18 01:12 [From Bactrim] trimethoprim [From Bactrim] Allergy Unknown Verified 08/27/18 01:12 Review of Systems ROS Statement: Those systems with pertinent positive or pertinent negative responses have been documented in the HPI. ROS Other: All systems not noted in ROS Statement are negative. Past Medical History Past Medical History: Thyroid Disorder Additional Past Medical History / Comment(s): kidney stone hospitalization History of Any Multi-Drug Resistant Organisms: None Reported Past Surgical History: Tubal Ligation Additional Past Surgical History / Comment(s): d&c Past Psychological History: Anxiety, Depression Smoking Status: Current every day smoker Past Alcohol Use History: Occasional Past Drug Use History: None Reported - Past Family History Mother Family Medical History: Cancer, Diabetes Mellitus General Exam - General Exam Comments Initial Comments: Constitutional: NAD, AOX3, Pt has pleasant affect. HEENT: NC/AT, trachea midline, neck supple, no lymphadenopathy. Posterior pharynx non erythematous, without exudates. External ears appear normal, without discharge. Mucous membranes moist. Eyes PERRLA, EOM intact. There is no scleral icterus. No pallor noted. Cardiopulmonary: RRR, no murmurs, rubs or gallops, no JVD noted. Lungs CTAB in anterior and posterior guajardo. No peripheral edema. Abdominal exam: Abdomen soft and non-distended. Abdomen non-tender to palpation in all 4 quadrants. Bowel sounds active in LLQ. No hepatosplenomegaly. No ecchymosis Neuro: CN II-XII grossly intact. No nuchal rigidity. No raccon eyes, no angeles sign, no hemotympanum. No cervical spinal tenderness. MSK: No posterior calf tenderness bilaterally, homans sign negative bilaterally. Posterior tibialis and radial pulse +2 bilaterally. Limitations: no limitations Course Vital Signs 08/27/18 01:10 Temperature 98.2 F Pulse Rate 86 Respiratory 18 Rate Blood Pressure 119/104 O2 Sat by Pulse 97 Oximetry Medical Decision Making - Medical Decision Making 33 year old female patient past medical history of renal calculi, status post tubal ligation presents to ED with 1 day of nausea vomiting diarrhea. Patient force of this began this morning. Patient reports that she has also had some minor fevers and chills. Patient denies any abdominal pain. Patient denies any cough, congestion, upper respiratory symptoms. Denies any pain with urination. Denies any other complaints. Patient VSS, afebrile. Physical exam did not demonstrates acute pathology, abdomen nontender to palpation. No guarding or rigidity no ecchymoses. The investigations reveal non-impressive CBC, CMP, lipase. UA displayed 4100 blood cells, 12 white blood cells, moderate leukocyte Estrace. Patient not concerning dysuria. Patient is currently on her menses. Urine will be cultured. KUB displayed no acute process. Patient was expressing viral gastroenteritis-like syndrome. Patient will be discharged with oral Zofran, will follow up with primary care provider tomorrow. Patient returned irritation or symptoms. Case discussed with Dr. Sawant. - Lab Data Result diagrams: 08/27/18 01:40 08/27/18 01:40 Lab Results 08/27/18 08/27/18 08/27/18 Range/Units 01:25 01:40 01:40 WBC 6.9 (3.8-10.6) k/uL RBC 4.57 (3.80-5.40) m/uL Hgb 14.5 (11.4-16.0) gm/dL Hct 41.5 (34.0-46.0) % MCV 90.8 (80.0-100.0) fL MCH 31.7 (25.0-35.0) pg MCHC 34.9 (31.0-37.0) g/dL RDW 12.9 (11.5-15.5) % Plt Count 268 (150-450) k/uL Neutrophils % 65 % Lymphocytes % 27 % Monocytes % 4 % Eosinophils % 2 % Basophils % 1 % Neutrophils # 4.5 (1.3-7.7) k/uL Lymphocytes # 1.8 (1.0-4.8) k/uL Monocytes # 0.3 (0-1.0) k/uL Eosinophils # 0.1 (0-0.7) k/uL Basophils # 0.0 (0-0.2) k/uL Sodium 139 (137-145) mmol/L Potassium 3.5 (3.5-5.1) mmol/L Chloride 108 H (98-107) mmol/L Carbon Dioxide 24 (22-30) mmol/L Anion Gap 7 mmol/L BUN 10 (7-17) mg/dL Creatinine 0.64 (0.52-1.04) mg/dL Est GFR (CKD-EPI)AfAm >90 (>60 ml/min/1.73 sqM) Est GFR (CKD-EPI)NonAf >90 (>60 ml/min/1.73 sqM) Glucose 109 H (74-99) mg/dL Calcium 9.1 (8.4-10.2) mg/dL Total Bilirubin 0.7 (0.2-1.3) mg/dL AST 30 (14-36) U/L ALT 29 (9-52) U/L Alkaline Phosphatase 83 (38-126) U/L Total Protein 7.1 (6.3-8.2) g/dL Albumin 4.4 (3.5-5.0) g/dL Lipase (23-300) U/L Urine Color Yellow Urine Appearance Cloudy H (Clear) Urine pH 6.5 (5.0-8.0) Ur Specific [place] 1.024 (1.001-1.035) Urine Protein 1+ H (Negative) Urine Glucose (UA) Negative (Negative) Urine Ketones Negative (Negative) Urine Blood Large H (Negative) Urine Nitrite Negative (Negative) Urine Bilirubin Negative (Negative) Urine Urobilinogen <2.0 (<2.0) mg/dL Ur Leukocyte Esterase Moderate H (Negative) Urine RBC 41 H (0-5) /hpf Urine WBC 12 H (0-5) /hpf Ur Squamous Epith Cells 26 H (0-4) /hpf Urine Mucus Rare H (None) /hpf 08/27/18 Range/Units 01:40 WBC (3.8-10.6) k/uL RBC (3.80-5.40) m/uL Hgb (11.4-16.0) gm/dL Hct (34.0-46.0) % MCV (80.0-100.0) fL MCH (25.0-35.0) pg MCHC (31.0-37.0) g/dL RDW (11.5-15.5) % Plt Count (150-450) k/uL Neutrophils % % Lymphocytes % % Monocytes % % Eosinophils % % Basophils % % Neutrophils # (1.3-7.7) k/uL Lymphocytes # (1.0-4.8) k/uL Monocytes # (0-1.0) k/uL Eosinophils # (0-0.7) k/uL Basophils # (0-0.2) k/uL Sodium (137-145) mmol/L Potassium (3.5-5.1) mmol/L Chloride (98-107) mmol/L Carbon Dioxide (22-30) mmol/L Anion Gap mmol/L BUN (7-17) mg/dL Creatinine (0.52-1.04) mg/dL Est GFR (CKD-EPI)AfAm (>60 ml/min/1.73 sqM) Est GFR (CKD-EPI)NonAf (>60 ml/min/1.73 sqM) Glucose (74-99) mg/dL Calcium (8.4-10.2) mg/dL Total Bilirubin (0.2-1.3) mg/dL AST (14-36) U/L ALT (9-52) U/L Alkaline Phosphatase (38-126) U/L Total Protein (6.3-8.2) g/dL Albumin (3.5-5.0) g/dL Lipase 74 (23-300) U/L Urine Color Urine Appearance (Clear) Urine pH (5.0-8.0) Ur Specific [place] (1.001-1.035) Urine Protein (Negative) Urine Glucose (UA) (Negative) Urine Ketones (Negative) Urine Blood (Negative) Urine Nitrite (Negative) Urine Bilirubin (Negative) Urine Urobilinogen (<2.0) mg/dL Ur Leukocyte Esterase (Negative) Urine RBC (0-5) /hpf Urine WBC (0-5) /hpf Ur Squamous Epith Cells (0-4) /hpf Urine Mucus (None) /hpf Disposition Clinical Impression: Viral syndrome, Nausea vomiting and diarrhea Disposition: HOME SELF-CARE Condition: Stable Instructions (If sedation given, give patient instructions): Acute Nausea and Vomiting (ED), Acute Diarrhea (ED) Additional Instructions: Patient to adhere to previously discussed treatment plan and will take medication(s) as directed. Patient to follow up with PCP in 1-2 days. Patient to return to ED if symptoms do not improve. Follow-up with primary care provider tomorrow. Return to ER if condition worsens. Prescriptions: Ondansetron Odt [Zofran ODT] 4 mg PO Q8HR PRN #20 tab PRN Reason: Nausea Is patient prescribed a controlled substance at d/c from ED?: No Referrals: Tracey Shaikh MD [Primary Care Provider] - 1-2 days
[2018-08-27 01:48] LABS: Appearance,Urine Cloudy (Clear); Bilirubin,Urine Negative (Negative); Blood,Urine Large (Negative); Color,Urine Yellow; Glucose,Urine (UA) Negative (Negative); Ketones,Urine Negative (Negative); Leukocyte Esterase,Urine Moderate (Negative); Mucus,Urine Rare /hpf; Nitrite,Urine Negative (Negative); PH, Urine 6.5 (5.0-8.0); Protein,Urine 1+ (Negative); RBC,Urine 41 /hpf (0-5); Specific Gravity,Urine 1.024 (1.001-1.035); Squamous Epithelial Cell,Urine 26 /hpf (0-4); Urobilinogen,Urine <2.0 mg/dL (<2.0); WBC,Urine 12 /hpf (0-5)
[2018-08-27 01:50] LABS: Basophils % (A) 1 %; Eosinophils # (A) 0.1 k/uL (0-0.7); Eosinophils % (A) 2 %; HCT 41.5 % (34.0-46.0); HGB 14.5 gm/dL (11.4-16.0); Lymphocytes # (A) 1.8 k/uL (1.0-4.8); Lymphocytes % (A) 27 %; MCH 31.7 pg (25.0-35.0); MCHC 34.9 g/dL (31.0-37.0); MCV 90.8 fL (80.0-100.0); Mean Platelet Volume 6.4; Monocytes # (A) 0.3 k/uL (0-1.0); Monocytes % (A) 4 %; Neutrophils # (A) 4.5 k/uL (1.3-7.7); Neutrophils % (A) 65 %; Platelet Count 268 k/uL (150-450); RBC 4.57 m/uL (3.80-5.40); RDW 12.9 % (11.5-15.5); WBC 6.9 k/uL (3.8-10.6)
[2018-08-27 01:59] LABS: ALT 29 U/L (9-52); AST 30 U/L (14-36); African American GFR (CKD) >90 (>60 ml/min/1.73 sqM); Albumin 4.4 g/dL (3.5-5.0); Alkaline Phosphatase 83 U/L (38-126); Anion Gap 7 mmol/L; Blood Urea Nitrogen 10 mg/dL (7-17); Calcium 9.1 mg/dL (8.4-10.2); Carbon Dioxide 24 mmol/L (22-30); Chloride 108 mmol/L (98-107); Glucose 109 mg/dL (74-99); Potassium 3.5 mmol/L (3.5-5.1); Sodium 139 mmol/L (137-145); Total Bilirubin 0.7 mg/dL (0.2-1.3); Total Protein 7.1 g/dL (6.3-8.2)
--- NOTE | 2018-08-27 02:12 | XR ---
EXAM: XR Abdomen, 2 Views CLINICAL HISTORY: Pain TECHNIQUE: Frontal view of the abdomen/pelvis with upright view of the abdomen. COMPARISON: No relevant prior studies available. FINDINGS: Intraperitoneal space: See below. Gastrointestinal tract: Unremarkable. No dilation. Bones/joints: Unremarkable. Soft tissues: Again seen are surgical clips within the right tisha- pelvis. IMPRESSION: No acute findings.
[2018-08-27 02:51] VITALS: BP 113/90; PULSE 78; RESP 16
== END 2018-08-27 02:49 | disposition home or self-care (01) ==
LOC: EC 01:09
DX: B34.9 Viral infection, unspecified (principal); F17.200 Nicotine dependence, unspecified, uncomplicated; Z88.1 Allergy status to other antibiotic agents; Z88.2 Allergy status to sulfonamides; Z87.442 Personal history of urinary calculi; Z98.51 Tubal ligation status
CPT/HCPCS: 36415; 80053; 83690; 85025; 81001; 74018; 99284; 96374; 96361; J2405

== ENCOUNTER 2019-04-16 16:32 | Emergency (ER) | payer OTHER ==
[2019-04-16 16:36] VITALS: BP 125/76; RESP 20; TEMP 97.9
[2019-04-16] MEDS ORDERED: IPRATROPIUM-ALBUTEROL 3 ML NEB INHALATION STA (17:01)
--- NOTE | 2019-04-16 17:12 | ED ---
General Adult HPI - General Chief complaint: Upper Respiratory Infection Stated complaint: cough Time Seen by Provider: 04/16/19 16:46 Source: patient, RN notes reviewed Mode of arrival: ambulatory Limitations: no limitations - History of Present Illness Initial comments: 33-year-old female with a past medical history of tubal ligation, anxiety, depression, current every day smoker presents to the emergency department for chief cough. Patient had cough and congestion starting 2 days ago. Patient states she has tried to cut back on smoking over the past couple days. She states she has felt hot and cold on and off but has not checked her temperature. Is not sure if she has had fevers. Denies any significant sore throat.Patient has no other complaints at this time including shortness of breath, chest pain, abdominal pain, nausea or vomiting, headache, or visual changes. - Related Data Home Medications Medication Instructions Recorded Confirmed Ibuprofen [Motrin Ib] 400 mg PO Q6H PRN 01/19/18 01/19/18 Previous Rx's Medication Instructions Recorded Hydrocodone/Acetaminophen [Axson 1 each PO Q6HR PRN #20 tab 01/19/18 5-325] Ibuprofen 800 mg PO Q6HR PRN #20 tablet 01/19/18 Albuterol Inhaler [Ventolin Hfa 2 puff INHALATION Q4HR PRN #1 06/06/18 Inhaler] inhaler Ondansetron Odt [Zofran ODT] 4 mg PO Q8HR PRN #20 tab 08/27/18 Albuterol Inhaler [Ventolin Hfa 1 - 2 puff INHALATION Q6HR PRN #1 04/16/19 Inhaler] inhaler predniSONE 50 mg PO DAILY #5 tablet 04/16/19 Allergies Allergy/AdvReac Type Severity Reaction Status Date / Time Sulfa (Sulfonamide Allergy Severe hives Verified 04/16/19 16:36 Antibiotics) sulfamethoxazole Allergy Unknown Verified 04/16/19 16:36 [From Bactrim] trimethoprim [From Bactrim] Allergy Unknown Verified 04/16/19 16:36 Review of Systems ROS Statement: Those systems with pertinent positive or pertinent negative responses have been documented in the HPI. ROS Other: All systems not noted in ROS Statement are negative. Past Medical History Past Medical History: Thyroid Disorder Additional Past Medical History / Comment(s): kidney stone hospitalization History of Any Multi-Drug Resistant Organisms: None Reported Past Surgical History: Tubal Ligation Additional Past Surgical History / Comment(s): d&c Past Psychological History: Anxiety, Depression Smoking Status: Current every day smoker Past Alcohol Use History: Occasional Past Drug Use History: None Reported - Past Family History Mother Family Medical History: Cancer, Diabetes Mellitus General Exam Limitations: no limitations General appearance: alert, in no apparent distress Head exam: Present: atraumatic, normocephalic, normal inspection Eye exam: Present: normal appearance, PERRL, EOMI. Absent: scleral icterus, conjunctival injection, periorbital swelling ENT exam: Present: normal exam, normal oropharynx, mucous membranes moist, TM's normal bilaterally, normal external ear exam Neck exam: Present: normal inspection, full ROM. Absent: tenderness, meningismus, lymphadenopathy Respiratory exam: Present: wheezes (Mild wheezing noted in bilateral lung guajardo, noted to be worse in the right lung field). Absent: respiratory distress, rales, rhonchi, stridor Cardiovascular Exam: Present: regular rate, normal rhythm, normal heart sounds. Absent: systolic murmur, diastolic murmur, rubs, gallop, clicks GI/Abdominal exam: Present: soft, normal bowel sounds. Absent: distended, tenderness, guarding, rebound, rigid Neurological exam: Present: alert Course Vital Signs 04/16/19 04/16/19 16:34 17:13 Temperature 97.9 F Pulse Rate 74 78 Respiratory 20 Rate Blood Pressure 125/76 O2 Sat by Pulse 99 Oximetry Procedures - Smoking Cessation Time Spent Discussing Smoking Cessation w/Patient (Minutes): 3 Patient Acknowledges Need for Cessation: Yes Medical Decision Making - Medical Decision Making Vital signs are stable. Patient is afebrile. Influenza is negative. Chest x- ray shows no change. Normal chest. Patient did have some wheezing on exam. I did discuss smoking cessation with patient for greater than 3 minutes. Patient was given a breathing treatment here which did help with her symptoms as well as her lung sounds. Patient will be discharged home with an inhaler and steroids. She will follow up with primary care in 1-2 days. She'll return if she has any worsening symptoms. - Lab Data Lab Results 04/16/19 Range/Units 16:35 Influenza Type A RNA Not Detected (Not Detectd) Influenza Type B (PCR) Not Detected (Not Detectd) Disposition Clinical Impression: Cough Disposition: HOME SELF-CARE Condition: Good Instructions (If sedation given, give patient instructions): Acute Cough (ED) Additional Instructions: Please take steroid as directed. Use inhaler as needed. Follow-up with primary care in 1-2 days. If you have any worsening symptoms return to the emergency department. Prescriptions: predniSONE 50 mg PO DAILY #5 tablet Albuterol Inhaler [Ventolin Hfa Inhaler] 1 - 2 puff INHALATION Q6HR PRN #1 inhaler PRN Reason: Shortness Of Breath Is patient prescribed a controlled substance at d/c from ED?: No Referrals: Raya Aquino MD [Primary Care Provider] - 1-2 days Time of Disposition: 17:31
--- NOTE | 2019-04-16 17:23 | XR ---
EXAMINATION TYPE: XR chest 2V DATE OF EXAM: 04/16/2019 COMPARISON: 06/06/2018 HISTORY: Short of breath and cough TECHNIQUE: 2 views FINDINGS: Heart and mediastinum are normal. Lungs are clear. Diaphragm is normal. Bony thorax appears normal. IMPRESSION: Normal chest. No change.
[2019-04-16 17:50] VITALS: PULSE 80
== END 2019-04-16 17:53 | disposition home or self-care (01) ==
LOC: EC 16:32
DX: R05 Cough (principal); R09.89 Other specified symptoms and signs involving the circulatory and respiratory systems; F17.200 Nicotine dependence, unspecified, uncomplicated; Z71.6 Tobacco abuse counseling; Z88.1 Allergy status to other antibiotic agents; Z88.2 Allergy status to sulfonamides
CPT/HCPCS: 71046; 87502; 94640; 99284

== ENCOUNTER 2019-09-15 07:46 | Emergency (ER) | payer OTHER ==
[2019-09-15] MEDS ORDERED: ONDANSETRON 4 MG/2 ML VIAL IVP STA (08:04)
[2019-09-15] MEDS ORDERED: SODIUM CHLORIDE 0.9% 1,000 ML IV STA (08:04)
[2019-09-15] MEDS ORDERED: SODIUM CHLORIDE 0.9% 500 ML 500 ML IV STA (08:04)
[2019-09-15] MEDS ORDERED: HYDROmorphone 0.5 MG/0.5 ML SYRINGE IVP STA ×2 (08:04→08:23)
--- NOTE | 2019-09-15 08:14 | ED ---
Abdominal Pain HPI - General Chief Complaint: Abdominal Pain Stated Complaint: abd pain/kidney stones Time Seen by Provider: 09/15/19 07:47 Source: patient, EMS, RN notes reviewed Mode of arrival: EMS Limitations: no limitations - History of Present Illness Initial Comments: This is a 34-year-old female presents emergency from via EMS chief complaint of severe right flank pain. Patient states started little over an hour ago. Patient states started after urinating and which she still large amount of blood. Patient states that she has pain he rates her back to her lower abdomen. She's been told that she has kidney stones but states that she's never passed one before. Patient denies any dysuria associated with or hematuria. Patient denies any fevers or chills patient had a prior tubal ligation denies any other abdominal surgeries. Denies chest pain or shortness breath - Related Data Previous Rx's Medication Instructions Recorded Cephalexin [Keflex] 500 mg PO Q6HR #40 cap 09/15/19 Ketorolac [Toradol] 10 mg PO Q8HR #15 tab 09/15/19 Allergies Allergy/AdvReac Type Severity Reaction Status Date / Time Sulfa (Sulfonamide Allergy Severe hives Verified 09/15/19 09:03 Antibiotics) sulfamethoxazole Allergy Unknown Verified 09/15/19 09:03 [From Bactrim] trimethoprim [From Bactrim] Allergy Unknown Verified 09/15/19 09:03 Review of Systems ROS Statement: Those systems with pertinent positive or pertinent negative responses have been documented in the HPI. ROS Other: All systems not noted in ROS Statement are negative. Past Medical History Past Medical History: Thyroid Disorder Additional Past Medical History / Comment(s): kidney stone hospitalization History of Any Multi-Drug Resistant Organisms: None Reported Past Surgical History: Tubal Ligation Additional Past Surgical History / Comment(s): d&c Past Psychological History: Anxiety, Depression Smoking Status: Current some day smoker Past Alcohol Use History: Occasional Past Drug Use History: None Reported - Past Family History Mother Family Medical History: Cancer, Diabetes Mellitus General Exam Limitations: no limitations General appearance: alert, in no apparent distress Head exam: Present: atraumatic, normocephalic, normal inspection Eye exam: Present: normal appearance, PERRL, EOMI. Absent: scleral icterus, conjunctival injection, periorbital swelling ENT exam: Present: normal exam, normal oropharynx, mucous membranes moist Neck exam: Present: normal inspection, full ROM. Absent: tenderness, meningismus, lymphadenopathy Respiratory exam: Present: normal lung sounds bilaterally. Absent: respiratory distress, wheezes, rales, rhonchi, stridor Cardiovascular Exam: Present: regular rate, normal rhythm, normal heart sounds. Absent: systolic murmur, diastolic murmur, rubs, gallop, clicks GI/Abdominal exam: Present: soft, tenderness (Mild right-sided), normal bowel sounds. Absent: distended, guarding, rebound, rigid Back exam: Present: CVA tenderness (R). Absent: CVA tenderness (L) Neurological exam: Present: alert, oriented X3 Skin exam: Present: warm, dry, intact, normal color. Absent: rash Course Vital Signs 09/15/19 07:48 Temperature 98.2 F Pulse Rate 85 Respiratory 20 Rate Blood Pressure 115/69 O2 Sat by Pulse 96 Oximetry Medical Decision Making - Medical Decision Making 34 show female presented emergency from for right flank pain. Patient does have a history kidney stone CT is obtained does not show any stone within the ureter there are stones within the kidney. Patient does have evidence of urinary tract infection, pyelonephritis was given Rocephin. Patient discharged on antibiotics and follow-up with urology. - Lab Data Result diagrams: 09/15/19 08:09/15/19 08:01 Lab Results 09/15/19 09/15/19 09/15/19 Range/Units 08:01 08:01 08:20 WBC 11.4 H (3.8-10.6) k/uL RBC 4.12 (3.80-5.40) m/uL Hgb 12.7 (11.4-16.0) gm/dL Hct 38.8 (34.0-46.0) % MCV 94.1 (80.0-100.0) fL MCH 30.7 (25.0-35.0) pg MCHC 32.6 (31.0-37.0) g/dL RDW 12.7 (11.5-15.5) % Plt Count 263 (150-450) k/uL Neutrophils % 77 % Lymphocytes % 14 % Monocytes % 5 % Eosinophils % 2 % Basophils % 1 % Neutrophils # 8.9 H (1.3-7.7) k/uL Lymphocytes # 1.6 (1.0-4.8) k/uL Monocytes # 0.5 (0-1.0) k/uL Eosinophils # 0.2 (0-0.7) k/uL Basophils # 0.1 (0-0.2) k/uL Sodium 142 (137-145) mmol/L Potassium 3.8 (3.5-5.1) mmol/L Chloride 112 H (98-107) mmol/L Carbon Dioxide 23 (22-30) mmol/L Anion Gap 7 mmol/L BUN 15 (7-17) mg/dL Creatinine 0.55 (0.52-1.04) mg/dL Est GFR (CKD-EPI)AfAm >90 (>60 ml/min/1.73 sqM) Est GFR (CKD-EPI)NonAf >90 (>60 ml/min/1.73 sqM) Glucose 132 H (74-99) mg/dL Calcium 8.7 (8.4-10.2) mg/dL Total Bilirubin 0.3 (0.2-1.3) mg/dL AST 30 (14-36) U/L ALT 18 (4-34) U/L Alkaline Phosphatase 69 (38-126) U/L Total Protein 6.3 (6.3-8.2) g/dL Albumin 3.9 (3.5-5.0) g/dL Lipase 162 (23-300) U/L Urine Color Yellow Urine Appearance Cloudy H (Clear) Urine pH 6.0 (5.0-8.0) Ur Specific [place] 1.023 (1.001-1.035) Urine Protein Trace H (Negative) Urine Glucose (UA) Negative (Negative) Urine Ketones Negative (Negative) Urine Blood Moderate H (Negative) Urine Nitrite Negative (Negative) Urine Bilirubin Negative (Negative) Urine Urobilinogen <2.0 (<2.0) mg/dL Ur Leukocyte Esterase Large H (Negative) Urine RBC 16 H (0-5) /hpf Urine WBC 70 H (0-5) /hpf Ur Squamous Epith Cells 5 H (0-4) /hpf Urine Bacteria Rare H (None) /hpf Urine Mucus Rare H (None) /hpf Disposition Clinical Impression: Acute pyelonephritis, Kidney stones Disposition: HOME SELF-CARE Condition: Stable Instructions (If sedation given, give patient instructions): Kidney Infection (ED) Additional Instructions: Please return to the Emergency Department if symptoms worsen or any other concer ns. Prescriptions: Cephalexin [Keflex] 500 mg PO Q6HR #40 cap Ketorolac [Toradol] 10 mg PO Q8HR #15 tab Is patient prescribed a controlled substance at d/c from ED?: No Referrals: Raya Aquino MD [Primary Care Provider] - 1-2 days Luca Rodriguez MD [STAFF PHYSICIAN] - 1-2 days Time of Disposition: 09:15
[2019-09-15] MEDS ORDERED: ONDANSETRON 4 MG/2 ML VIAL IVP ONE (08:30)
[2019-09-15 08:32] LABS: Basophils # (A) 0.1 k/uL (0-0.2); Basophils % (A) 1 %; Eosinophils # (A) 0.2 k/uL (0-0.7); Eosinophils % (A) 2 %; HCT 38.8 % (34.0-46.0); HGB 12.7 gm/dL (11.4-16.0); Lymphocytes # (A) 1.6 k/uL (1.0-4.8); Lymphocytes % (A) 14 %; MCH 30.7 pg (25.0-35.0); MCHC 32.6 g/dL (31.0-37.0); MCV 94.1 fL (80.0-100.0); Mean Platelet Volume 6.8; Monocytes # (A) 0.5 k/uL (0-1.0); Monocytes % (A) 5 %; Neutrophils # (A) 8.9 k/uL (1.3-7.7); Neutrophils % (A) 77 %; Platelet Count 263 k/uL (150-450); RBC 4.12 m/uL (3.80-5.40); RDW 12.7 % (11.5-15.5); WBC 11.4 k/uL (3.8-10.6)
[2019-09-15 08:36] LABS: Appearance,Urine Cloudy (Clear); Bacteria,Urine Rare /hpf; Bilirubin,Urine Negative (Negative); Blood,Urine Moderate (Negative); Color,Urine Yellow; Glucose,Urine (UA) Negative (Negative); Ketones,Urine Negative (Negative); Leukocyte Esterase,Urine Large (Negative); Mucus,Urine Rare /hpf; Nitrite,Urine Negative (Negative); Protein,Urine Trace (Negative); RBC,Urine 16 /hpf (0-5); Specific Gravity,Urine 1.023 (1.001-1.035); Squamous Epithelial Cell,Urine 5 /hpf (0-4); Urobilinogen,Urine <2.0 mg/dL (<2.0); WBC,Urine 70 /hpf (0-5)
[2019-09-15 08:42] LABS: ALT 18 U/L (4-34); AST 30 U/L (14-36); African American GFR (CKD) >90 (>60 ml/min/1.73 sqM); Albumin 3.9 g/dL (3.5-5.0); Alkaline Phosphatase 69 U/L (38-126); Anion Gap 7 mmol/L; Blood Urea Nitrogen 15 mg/dL (7-17); Calcium 8.7 mg/dL (8.4-10.2); Carbon Dioxide 23 mmol/L (22-30); Chloride 112 mmol/L (98-107); Glucose 132 mg/dL (74-99); Non-African American GFR(CKD) >90 (>60 ml/min/1.73 sqM); Potassium 3.8 mmol/L (3.5-5.1); Sodium 142 mmol/L (137-145); Total Bilirubin 0.3 mg/dL (0.2-1.3); Total Protein 6.3 g/dL (6.3-8.2)
--- NOTE | 2019-09-15 09:02 | CT ---
EXAMINATION TYPE: CT abdomen pelvis wo con DATE OF EXAM: 09/15/2019 COMPARISON: 01/19/2018 INDICATION: Gross hematuria, flank pain DLP: 480.8 mGycm, Automated exposure control for dose reduction was used. CONTRAST: 0 mL of Isovue 300. Study performed without Oral Contrast TECHNIQUE: Axial images were obtained from above the diaphragm to the pubic rami in the axial plane a t 5 mm thick sections. Reconstructed images are reviewed on the computer in the coronal plane. FINDINGS: Limited CT sections are obtained the lung bases. The lung bases are clear. CT ABDOMEN: Liver: Normal Spleen: Normal Pancreas: Normal Adrenal glands: The adrenal glands are normal. Gallbladder: Normal Kidneys: No masses are evident. No hydronephrosis is present. No cysts are present. Multiple calci fications are present within the bilateral kidneys. The largest is in the mid to inferior anterior le ft kidney measuring 0.4 cm. Consider medullary sponge kidney within the differential. Previous hydrou reter is not identified. Aorta: Normal Inferior vena cava: Normal. CT PELVIS: Loops of bowel within the abdomen and pelvis are normal. The studies performed without oral contr ast limiting bowel evaluation. Appendix: Normal as visualized. Urinary bladder: Decompressed and cannot be well evaluated. Genitourinary structures: Uterus appears unremarkable. Adnexal regions are clear. Osseous structures: No suspicious lytic or sclerotic lesions. IMPRESSIONS: 1. Multiple nonobstructing bilateral renal stones. No suspicious ureteral stones are evident.
[2019-09-15] MEDS ORDERED: cefTRIAXone IN SWFI 1,000 MG/10 ML SYRINGE IVP STA (09:09)
[2019-09-17 09:18] VITALS: BP 125/86; PULSE 77; RESP 20; TEMP 98.2
== END 2019-09-15 09:56 | disposition home or self-care (01) ==
LOC: EC 07:46
DX: N10 Acute pyelonephritis (principal); N20.0 Calculus of kidney; F17.200 Nicotine dependence, unspecified, uncomplicated; Z98.51 Tubal ligation status; Z88.2 Allergy status to sulfonamides
CPT/HCPCS: 36415; 74176; 80053; 81001; 83690; 85025; 96374; 96375; 99285

== ENCOUNTER 2019-10-07 11:56 | Emergency (ER) | payer OTHER ==
[2019-10-07 12:03] VITALS: TEMP 98.9
--- NOTE | 2019-10-07 12:41 | ED ---
General Adult HPI - General Chief complaint: Shortness of Breath Stated complaint: SOB, cough, fever Time Seen by Provider: 10/07/19 12:07 Source: patient, RN notes reviewed, old records reviewed Mode of arrival: ambulatory Limitations: no limitations - History of Present Illness Initial comments: 34-year-old female presents with concerned that she may have contracted coronavirus. 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 She has had 4 days of cough and nasal congestion. Denies significant sore throat. She also reports a headache. No nausea or vomiting. No chest pain. She does report some chest congestion. Patient denies history of asthma or COPD. She is not currently on any medicat ions. She also reports subjective fever. - Related Data Previous Rx's Medication Instructions Recorded Cephalexin [Keflex] 500 mg PO Q6HR #40 cap 09/15/19 Ketorolac [Toradol] 10 mg PO Q8HR #15 tab 09/15/19 Allergies Allergy/AdvReac Type Severity Reaction Status Date / Time Sulfa (Sulfonamide Allergy Severe hives Verified 10/07/19 12:03 Antibiotics) sulfamethoxazole Allergy Unknown Verified 10/07/19 12:03 [From Bactrim] trimethoprim [From Bactrim] Allergy Unknown Verified 10/07/19 12:03 Review of Systems ROS Statement: Those systems with pertinent positive or pertinent negative responses have been documented in the HPI. ROS Other: All systems not noted in ROS Statement are negative. Past Medical History Past Medical History: Thyroid Disorder Additional Past Medical History / Comment(s): kidney stone hospitalization History of Any Multi-Drug Resistant Organisms: None Reported Past Surgical History: Tubal Ligation Additional Past Surgical History / Comment(s): d&c Past Psychological History: Anxiety, Depression Smoking Status: Current every day smoker Past Alcohol Use History: Occasional Past Drug Use History: None Reported - Past Family History Mother Family Medical History: Cancer, Diabetes Mellitus General Exam Limitations: no limitations General appearance: alert, in no apparent distress Head exam: Present: atraumatic, normocephalic Eye exam: Present: normal appearance, PERRL ENT exam: Present: normal exam Neck exam: Present: normal inspection. Absent: tenderness, meningismus Respiratory exam: Present: normal lung sounds bilaterally, other (Mild cough). Absent: respiratory distress, wheezes, rales, rhonchi Cardiovascular Exam: Present: regular rate, normal rhythm GI/Abdominal exam: Present: soft. Absent: distended, tenderness Extremities exam: Present: normal inspection, normal capillary refill. Absent: pedal edema, calf tenderness Neurological exam: Present: alert, oriented X3 Psychiatric exam: Present: normal affect, normal mood Skin exam: Present: warm, dry, intact. Absent: cyanosis, diaphoretic Course Vital Signs 10/07/19 10/07/19 10/07/19 12:00 12:36 13:17 Temperature 98.9 F Pulse Rate 97 77 Respiratory 18 21 18 Rate Blood Pressure 127/78 111/75 O2 Sat by Pulse 99 99 Oximetry Medical Decision Making - Medical Decision Making 34-year-old female sent in with suspected COVID 19 infection. Patient well- appearing, afebrile, mild cough. Chest x-ray negative for focal pneumonia. Patient is breathing comfortably on room air and no hypoxia. She 14 awaiting test results. These take approximately 24 hours. Swab has been sent. She will return with worsening symptoms, dyspnea, shortness of breath. Disposition Clinical Impression: Viral upper respiratory infection Disposition: HOME SELF-CARE Condition: Good Instructions (If sedation given, give patient instructions): Acute Bronchitis (ED), Viral Syndrome (ED) Additional Instructions: Please quarantine yourself until test results are returned. Please return with worsening or changing symptoms. Is patient prescribed a controlled substance at d/c from ED?: No Referrals: Raya Aquino MD [Primary Care Provider] - 1-2 days Time of Disposition: 13:40
--- NOTE | 2019-10-07 13:15 | XR ---
EXAMINATION TYPE: XR chest 1V portable DATE OF EXAM: 10/07/2019 COMPARISON: Prior chest x-ray 04/16/2019 HISTORY: Difficulty breathing TECHNIQUE: Single frontal view of the chest is obtained. FINDINGS: There is no focal air space opacity, pleural effusion, or pneumothorax seen. The cardiac silhouette size is within normal limits. The osseous structures are intact. IMPRESSION: No acute process.
[2019-10-07 13:19] VITALS: BP 111/75; PULSE 77; RESP 18
== END 2019-10-07 14:14 | disposition home or self-care (01) ==
LOC: EC 11:56
DX: J06.9 Acute upper respiratory infection, unspecified (principal); F17.200 Nicotine dependence, unspecified, uncomplicated; Z20.828 Contact with and (suspected) exposure to other viral communicable diseases; Z88.2 Allergy status to sulfonamides
CPT/HCPCS: 99285; 71045; U0003

== ENCOUNTER 2019-12-18 06:18 | Emergency (ER) | payer OTHER ==
[2019-12-18] MEDS ORDERED: cefTRIAXone 250 MG VIAL IM STA (06:33)
[2019-12-18] MEDS ORDERED: DIPH,PERTUS(ACELL)TETVAC-LF 0.5 ML VIAL IM ONE (06:35)
[2019-12-18] MEDS ORDERED: AZITHROMYCIN 500 MG TAB PO STA (06:35)
[2019-12-18] MEDS ORDERED: metroNIDAZOLE 500 MG TAB PO STA (06:35)
[2019-12-18] MEDS ORDERED: HEPATITIS B VIRUS VAC-ADULT/PF 20 MCG/ML SYRINGE IM ONE (06:35)
[2019-12-18 06:40] VITALS: TEMP 97.9
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
[2019-12-18] MEDS ORDERED: EMTRICITABINE/TENOFOVIR (TDF) 1 EACH, RALTEGRAVIR POTASSIUM 400 MG PO ONE ×2 (06:45)
[2019-12-18] MEDS ORDERED: HEPATITIS B IMMUNE GLOBULIN 5 ML VIAL IM ONE (06:50)
[2019-12-18 08:15] VITALS: BP 110/78; PULSE 83; RESP 20
== END 2019-12-18 08:13 | disposition home or self-care (01) ==
LOC: EC 06:18
DX: T74.21XA Adult sexual abuse, confirmed, initial encounter (principal); T21.01XA Burn of unspecified degree of chest wall, initial encounter; T31.0 Burns involving less than 10% of body surface; Z23 Encounter for immunization; F17.200 Nicotine dependence, unspecified, uncomplicated; Z88.2 Allergy status to sulfonamides; Y07.59 Other non-family member, perpetrator of maltreatment and neglect
CPT/HCPCS: 36415; 86701; 87491; 87591; 86780; 90371; 90746; 90715; 99285; 90471; 96372 ×2; J0696

== ENCOUNTER 2020-01-14 19:21 | Inpatient (IN) | payer MEDICAID, OTHER ==
--- NOTE | 2020-01-14 20:34 | ED ---
Psych HPI - General Source: patient, police Mode of arrival: ambulatory <Imleda Walden - Last Filed: 01/15/20 02:57> <Lacho Thomas - Last Filed: 01/16/20 09:04> - General Chief Complaint: Psychiatric Symptoms Stated Complaint: Mental Health Time Seen by Provider: 01/14/20 20:05 - History of Present Illness Initial Comments: 34 year-old female patient presents to the emergency department today for psychiatric evaluation. Patient states that she has been feeling suicidal for quite some time. States she has thoughts of killing herself on a daily basis. States that she doesn't have a specific plan but she often contemplates how she will do it. She started taking Prozac about one week ago. Denies having counseling at this time. Does admit to drinking alcohol today. Denies any hallucinations. Denies any current injuries or concerns. Denies any medical conditions or other medication use. Denies chance of . Patient denies any recent rash, fever, chills, cough, shortness of breath, chest pain, abdominal pain, nausea, vomiting, diarrhea, constipation, back pain, numbness, tingling, dizziness, weakness, hematuria, dysuria, urinary urgency, urinary frequency, headache, visual changes, or any other complaints. (Imelda Walden) - Related Data Home Medications Medication Instructions Recorded Confirmed No Known Home Medications 01/14/20 01/14/20 Allergies Allergy/AdvReac Type Severity Reaction Status Date / Time Sulfa (Sulfonamide Allergy Severe Anaphylaxis Verified 01/14/20 23:13 Antibiotics) sulfamethoxazole Allergy Anaphylaxis Verified 01/14/20 23:13 [From Bactrim] trimethoprim [From Bactrim] Allergy Anaphylaxis Verified 01/14/20 23:13 Review of Systems ROS Other: All systems not noted in ROS Statement are negative. <Imelda Walden - Last Filed: 01/15/20 02:57> ROS Other: All systems not noted in ROS Statement are negative. <Lacho Thomas - Last Filed: 01/16/20 09:04> ROS Statement: Those systems with pertinent positive or pertinent negative responses have been documented in the HPI. Past Medical History Past Medical History: Thyroid Disorder Additional Past Medical History / Comment(s): kidney stone hospitalization History of Any Multi-Drug Resistant Organisms: None Reported Past Surgical History: Tubal Ligation Additional Past Surgical History / Comment(s): d&c Past Psychological History: Anxiety, Depression Smoking Status: Current every day smoker Past Alcohol Use History: Occasional Past Drug Use History: None Reported - Past Family History Mother Family Medical History: Cancer, Diabetes Mellitus <Imelda Walden - Last Filed: 01/15/20 02:57> General Exam Limitations: no limitations General appearance: alert, in no apparent distress, appears intoxicated, other (This is a well-developed, well-nourished adult female patient in no acute dist ress. Vital signs upon presentation are temperature 98.9F, pulse 84, respirations 20, blood pressure 154/88, pulse ox 96% on room air.) Eye exam: Present: normal appearance, PERRL, EOMI. Absent: scleral icterus, conjunctival injection, periorbital swelling Respiratory exam: Present: normal lung sounds bilaterally. Absent: respiratory distress, wheezes, rales, rhonchi, stridor Cardiovascular Exam: Present: regular rate, normal rhythm, normal heart sounds. Absent: systolic murmur, diastolic murmur, rubs, gallop, clicks GI/Abdominal exam: Present: soft, normal bowel sounds. Absent: distended, tenderness, guarding, rebound, rigid Neurological exam: Present: alert, oriented X3, CN II-XII intact Psychiatric exam: Present: depressed, suicidal ideation, other (Tearful). Absent: homicidal ideation Skin exam: Present: warm, dry, intact, normal color. Absent: rash <Imelda Walden - Last Filed: 01/15/20 02:57> Course Vital Signs 01/14/20 01/15/20 19:35 06:31 Temperature 98.9 F 98.9 F Pulse Rate 84 80 Respiratory 20 18 Rate Blood Pressure 154/88 121/72 O2 Sat by Pulse 96 96 Oximetry Medical Decision Making <Imelda Walden - Last Filed: 01/15/20 02:57> - Lab Data Result diagrams: 01/15/20 08:45 01/15/20 08:45 <Lacho Thomas - Last Filed: 01/16/20 09:04> - Medical Decision Making 34-year-old female patient presents to the emergency department today for suicidal ideation. She is intoxicated. Physical examination is unremarkable. Patient is cleared medically just awaiting to be sober to have emergency psychiatric evaluation. She has been calm and cooperative while in the department. Care of be handed over to my attending Dr. Thomas to manage until disposition. (Imelda Walden) I saw this patient in conjunction with the nurse practitioner. I performed independent history and physical exam. Agree with case management. I completed the clinical status. (Lacho Thomas) - Lab Data Lab Results 01/14/20 01/14/20 Range/Units 21:00 21:00 Urine HCG, Qual Not Detected (Not Detectd) Urine Opiates Screen Not Detected (NotDetected) Ur Oxycodone Screen Not Detected (NotDetected) Urine Methadone Screen Not Detected (NotDetected) Ur Propoxyphene Screen Not Detected (NotDetected) Ur Barbiturates Screen Not Detected (NotDetected) U Tricyclic Antidepress Not Detected (NotDetected) Ur Phencyclidine Scrn Not Detected (NotDetected) Ur Amphetamines Screen Not Detected (NotDetected) U Methamphetamines Scrn Not Detected (NotDetected) U Benzodiazepines Scrn Not Detected (NotDetected) Urine Cocaine Screen Not Detected (NotDetected) U Marijuana (THC) Screen Detected H (NotDetected) Disposition <Imelda Walden - Last Filed: 01/15/20 02:57> <Lacho Thomas - Last Filed: 01/16/20 09:04> Clinical Impression: Mood disorder, Suicidal ideation Disposition: ADMITTED IP TO THIS HOSP Condition: Fair
[2020-01-14 21:16] LABS: Amphetamine Screen,Urine Not Detected (NotDetected); Barbiturate Screen,Urine Not Detected (NotDetected); Benzodiazepines Screen,Urine Not Detected (NotDetected); Cocaine Screen,Urine Not Detected (NotDetected); Methadone Screen, Urine Not Detected (NotDetected); Opiate Screen,Urine Not Detected (NotDetected); Oxycodone Screen, Urine Not Detected (NotDetected); Phencyclidine Screen,Urine Not Detected (NotDetected); Tricyclic Antidepressant,Urine Not Detected (NotDetected); Urn Cannabinoid Scrn Detected (NotDetected)
[2020-01-15] MEDS ORDERED: LORazepam 1 MG TAB PO STA (06:13)
[2020-01-15] MEDS ORDERED: MAG HYDROX/AL HYDROX/SIMETH 30 ML CUP PO PRN (06:22)
[2020-01-15] MEDS ORDERED: MAGNESIUM HYDROXIDE 2,400 MG/10 ML CUP PO PRN (06:22)
[2020-01-15] MEDS ORDERED: ZIPRASIDONE 20 MG VIAL IM PRN (06:22)
[2020-01-15] MEDS ORDERED: LORazepam 2 MG/ML INJ IM PRN (06:28)
[2020-01-15] MEDS ORDERED: NICOTINE 14MG/24HR PATCH TRANSDERM SCH (09:00)
[2020-01-15 09:21] LABS: Basophils # (A) 0.1 k/uL (0-0.2); Basophils % (A) 1 %; Eosinophils # (A) 0.1 k/uL (0-0.7); Eosinophils % (A) 1 %; HCT 44.1 % (34.0-46.0); HGB 14.8 gm/dL (11.4-16.0); Lymphocytes # (A) 2.2 k/uL (1.0-4.8); Lymphocytes % (A) 20 %; MCH 31.8 pg (25.0-35.0); MCHC 33.5 g/dL (31.0-37.0); MCV 94.9 fL (80.0-100.0); Mean Platelet Volume 6.4; Monocytes # (A) 0.4 k/uL (0-1.0); Monocytes % (A) 4 %; Neutrophils # (A) 8.2 k/uL (1.3-7.7); Neutrophils % (A) 74 %; Platelet Count 291 k/uL (150-450); RBC 4.64 m/uL (3.80-5.40); RDW 11.8 % (11.5-15.5); WBC 11.1 k/uL (3.8-10.6)
[2020-01-15] MEDS: NICOTINE 7MG/24HR PATCH TRANSDERM SCH (09:41)
[2020-01-15] MEDS: LORazepam 1 MG TAB PO PRN ×2 (09:42→18:22)
[2020-01-15 09:51] LABS: ALT 33 U/L (4-34); AST 29 U/L (14-36); African American GFR (CKD) >90 (>60 ml/min/1.73 sqM); Albumin 4.9 g/dL (3.5-5.0); Alkaline Phosphatase 58 U/L (38-126); Anion Gap 10 mmol/L; Blood Urea Nitrogen 14 mg/dL (7-17); Calcium 9.3 mg/dL (8.4-10.2); Carbon Dioxide 23 mmol/L (22-30); Chloride 104 mmol/L (98-107); Cholesterol 207 mg/dL (<200); Glucose 125 mg/dL (74-99); HDL Cholesterol 54 mg/dL (40-60); LDL Cholesterol,Calculated 105 mg/dL (0-99); Non-African American GFR(CKD) >90 (>60 ml/min/1.73 sqM); Sodium 137 mmol/L (137-145); Total Bilirubin 0.6 mg/dL (0.2-1.3); Total Protein 7.8 g/dL (6.3-8.2); Triglycerides 238 mg/dL (<150)
--- NOTE | 2020-01-15 14:20 | P.CONS ---
History of Present Illness - Reason for Consult Leukocytosis, hyperlipidemia - History of Present Illness 34-year-old pleasant female is admitted to psychiatric floor for management of her psychotic symptoms and depression. Patient is a still quite a bit depressed. She denied any fever chills nausea vomiting dysuria diarrhea. Patient has mild leukocytosis without any evidence of infection. Vision is m ildly elevated LDL. Patient does smoke., Urine drug screen is positive for marijuana Review of Systems REVIEW OF SYSTEMS: CONSTITUTIONAL: No fever, no malaise, no fatigue. HEENT: No recent visual problems or hearing problems. Denied any sore throat. CARDIOVASCULAR: No chest pain, orthopnea, PND, no palpitations, no syncope. PULMONARY: No shortness of breath, no cough, no hemoptysis. GASTROINTESTINAL: No diarrhea, no nausea, no vomiting, no abdominal pain. NEUROLOGICAL: No headaches, no weakness, no numbness. HEMATOLOGICAL: Denies any bleeding or petechiae. GENITOURINARY: Denies any burning micturition, frequency, or urgency. MUSCULOSKELETAL/RHEUMATOLOGICAL: Denies any joint pain, swelling, or any muscle pain. ENDOCRINE: Denies any polyuria or polydipsia. The rest of the 14-point review of systems is negative. Past Medical History Past Medical History: Thyroid Disorder Additional Past Medical History / Comment(s): kidney stone hospitalization History of Any Multi-Drug Resistant Organisms: None Reported Past Surgical History: Tubal Ligation Additional Past Surgical History / Comment(s): d&c Past Psychological History: Anxiety, Depression Smoking Status: Current every day smoker Past Alcohol Use History: Occasional Past Drug Use History: None Reported - Past Family History Mother Family Medical History: Cancer, Diabetes Mellitus Medications and Allergies Home Medications Medication Instructions Recorded Confirmed Type No Known Home Medications 01/14/20 01/14/20 History Allergies Allergy/AdvReac Type Severity Reaction Status Date / Time Sulfa (Sulfonamide Allergy Severe Anaphylaxis Verified 01/14/20 23:13 Antibiotics) sulfamethoxazole Allergy Anaphylaxis Verified 01/14/20 23:13 [From Bactrim] trimethoprim [From Bactrim] Allergy Anaphylaxis Verified 01/14/20 23:13 Physical Exam Vitals: Vital Signs Temp Pulse Pulse Resp BP BP Pulse Ox 01/15/20 13:51 97.6 F 01/15/20 07:03 98.1 F 74 16 117/81 01/15/20 06:31 98.9 F 80 18 121/72 96 01/14/20 19:35 98.9 F 84 20 154/88 96 Intake and Output 01/14/20 01/15/20 01/15/20 22:59 06:59 14:59 Other: Weight 65.771 kg 61.689 kg PHYSICAL EXAMINATION: GENERAL: The patient is alert and oriented x3, not in any acute distress. Well developed, well nourished. HEENT: Pupils are round and equally reacting to light. EOMI. No scleral icterus. No conjunctival pallor. Normocephalic, atraumatic. No pharyngeal erythema. No thyromegaly. CARDIOVASCULAR: S1 and S2 present. No murmurs, rubs, or gallops. PULMONARY: Chest is clear to auscultation, no wheezing or crackles. ABDOMEN: Soft, nontender, nondistended, normoactive bowel sounds. No palpable organomegaly. MUSCULOSKELETAL: No joint swelling or deformity. EXTREMITIES: No cyanosis, clubbing, or pedal edema. NEUROLOGICAL: Gross neurological examination did not reveal any focal deficits. SKIN: No rashes. Results CBC & Chem 7: 01/15/20 08:45 01/15/20 08:45 Labs: Abnormal Lab Results - Last 24 Hours (Table) 01/14/20 01/15/20 01/15/20 Range/Units 21:00 08:45 08:45 WBC 11.1 H (3.8-10.6) k/uL Neutrophils # 8.2 H (1.3-7.7) k/uL Glucose 125 H (74-99) mg/dL Triglycerides 238 H (<150) mg/dL Cholesterol 207 H (<200) mg/dL LDL Cholesterol, Calc 105 H (0-99) mg/dL U Marijuana (THC) Screen Detected H (NotDetected) Assessment and Plan Plan: Leukocytosis: No clinical evidence of infection at this time, no further intervention. Reactive in nature -Marijuana use and nicotine abuse: Counseling was provided -Depression: Management as per primary service -Mildly elevated LDL, dietary counseling was provided should improve with dietary management
[2020-01-15 16:07] LABS: Hemoglobin A1C 5.2 % (4.0-6.0)
[2020-01-15] MEDS: OLANZapine 10 MG TAB PO SCH (21:55)
[2020-01-15] MEDS: traZODone HCL 50 MG TAB PO SCH (21:55)
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
[2020-01-16] MEDS: NICOTINE 7MG/24HR PATCH TRANSDERM SCH (08:56)
[2020-01-16] MEDS: OLANZapine 10 MG TAB PO SCH ×2 (08:56→21:46)
[2020-01-16] MEDS: LORazepam 1 MG TAB PO PRN (08:56)
[2020-01-16 10:13] LABS: Appearance,Urine Clear (Clear); Bilirubin,Urine Negative (Negative); Blood,Urine Small (Negative); Color,Urine Yellow; Glucose,Urine (UA) Negative (Negative); Ketones,Urine Negative (Negative); Leukocyte Esterase,Urine Negative (Negative); Mucus,Urine Rare /hpf; Nitrite,Urine Negative (Negative); Protein,Urine Negative (Negative); RBC,Urine 1 /hpf (0-5); Squamous Epithelial Cell,Urine 3 /hpf (0-4); Urobilinogen,Urine <2.0 mg/dL (<2.0); WBC,Urine 2 /hpf (0-5)
[2020-01-16] MEDS: traZODone HCL 50 MG TAB PO SCH (21:46)
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
[2020-01-17] MEDS: NICOTINE 7MG/24HR PATCH TRANSDERM SCH (08:51)
[2020-01-17] MEDS: LORazepam 1 MG TAB PO PRN ×2 (08:51→16:51)
[2020-01-17] MEDS: OLANZapine 10 MG TAB PO SCH (08:51)
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
[2020-01-17] MEDS: FLUoxetine HCL 20 MG CAP PO SCH (10:33)
[2020-01-17] MEDS: traZODone HCL 50 MG TAB PO SCH (21:21)
[2020-01-17] MEDS: OLANZapine 7.5 MG TAB PO SCH (21:21)
[2020-01-17] MEDS: PRAZOSIN 1 MG CAP PO SCH (21:21)
--- NOTE | 2020-01-18 09:04 | P.PN ---
Progress Note - Text Progress Note Date: 01/18/20 Interval History: Patient was seen before taking her medications this morning and was directable and agreeable to speak with check writer salesperson in the office. Patient appeared to be less tearful today however was appropriate with check writer salesperson during conversation. She continues to endorse significant depression however did state that she slept better last night with the prazosin as she did not have any nightmares. She continues to endorse guilt and also anxiety about where she'll be going after she is discharged from the hospital. She did state that she would be willing to go to rehab however once to be out of [facility] and away from people she knows in the city. She states that she is worried about her belongings that she left behind prior to coming in the hospital. She claims that she was able to sleep much better. Patient was agreeable to continue on with the medications and have her Prozac increased. sHe states that she is trying to go to groups. At this time patient denies any suicidal or homical ideations, intent or plan. Patient denies any auditory, visual hallucinations and denies any paranoia or delusions. Patient denies any side effects from the medications and has been compliant with meds. Mental Status Exam: General Appearance: Patient appears to be stated age is alert, attempts to be cooperative. Appears to have improving hygiene and grooming. Behavior: Patient is calmly seated without any agitated behavior. Less tearful today Speech: Patient's speech is fluent and nonpressured. Mood/Affect: Mood is depressed and anxious, improving mildly, affect is congruent and was less tearful Suicidality/Homicidality: Patient denies having any suicidal or homicidal ideation intent or plan. Perceptions: Patient denies any visual hallucinations and denies any auditory hallucinations Though content/process: There is no evidence of any delusional thought content and thought process is linear and goal-directed. Patient was focused on her symptoms depressive content and anxiety about discharge plan. Memory and concentration: AOX3, grossly intact for the purposes of this session Judgment and insight: Poor, Improving mildly Assessment Major depressive disorder, severe, without psychotic features rule out bipolar depression Alcohol use disorder, currently withdrawal PTSD Cannabis use disorder Nicotine dependence Plan: -Patient continues to meet criteria for inpatient psychiatric admission for symptom stabilization and safety. Patient has signed adult voluntary form and medication consent and was placed in patient's chart. -Medications: Decrease Zyprexa to 7.5 mg qhs + 5mg daily for mood stabilization/mood adjunct. Increased Prozac 40 mg daily for mood/anxiety. Continue with prazosin 1 mg daily at bedtime for nightmares. Continue with trazodone 50 mg daily at bedtime for insomnia/mood. -When necessary Ativan and Geodon for agitation/aggression. -Continue with CIWA protocol with Ativan when necessary for alcohol withdrawal -NRT - nicotine patch -SW on board for discharge planning. Encouraged the patient to participate in milieu. Patient is willing to go back to rehab upon discharge when she is psychiatrically stable. Patient will prefer to go to a rehab out of [facility].
[2020-01-18] MEDS: OLANZapine 7.5 MG TAB PO SCH ×2 (09:09→20:56)
[2020-01-18] MEDS: FLUoxetine HCL 20 MG CAP PO SCH (09:09)
[2020-01-18] MEDS: NICOTINE 7MG/24HR PATCH TRANSDERM SCH (09:09)
[2020-01-18] MEDS: LORazepam 1 MG TAB PO PRN ×2 (09:10→18:51)
[2020-01-18] MEDS: PRAZOSIN 1 MG CAP PO SCH (20:56)
[2020-01-18] MEDS: traZODone HCL 50 MG TAB PO SCH (20:56)
[2020-01-19] MEDS: FLUoxetine HCL 20 MG CAP PO SCH (08:46)
[2020-01-19] MEDS: OLANZapine 7.5 MG TAB PO SCH (08:46)
[2020-01-19] MEDS: NICOTINE 7MG/24HR PATCH TRANSDERM SCH (08:46)
[2020-01-19] MEDS: LORazepam 1 MG TAB PO PRN ×2 (08:48→18:42)
--- NOTE | 2020-01-19 08:56 | P.PN ---
Progress Note - Text Progress Note Date: 01/19/20 Interval History: Patient was seen this morning and was directable and agreeable to speak with ji varela in the office. Patient appeared to be less tearful today. She claims that she feels mild improvement in her overall state today. She states that she has been crying less and also been feeling less depressed today. She states that she does have some anxiety at times. She claims that she has having difficulties with her energy level during the day however has been trying to take part in most groups and stay away from her room as she does not want to isolate herself. She continues to state that she is able to sleep better last night and denies having any nightmares. She claims that she will be talking with her to have him bring in her belongings when she goes to rehab. Patient was agreeable to continue on with the medications and have her Prozac increased. sHe states that she is trying to go to groups. At this time patient denies any suicidal or homical ideations, intent or plan. Patient denies any auditory, visual hallucinations and denies any paranoia or delusions. Patient denies any side effects from the medications and has been compliant with meds. Mental Status Exam: General Appearance: Patient appears to be stated age is alert, attempts to be cooperative. Appears to have improving hygiene and grooming. Behavior: Patient is calmly seated without any agitated behavior. Less tearful today Speech: Patient's speech is fluent and nonpressured. Mood/Affect: Mood is depressed and anxious, improving mildly, affect is congruent Suicidality/Homicidality: Patient denies having any suicidal or homicidal ideation intent or plan. Perceptions: Patient denies any visual hallucinations and denies any auditory hallucinations Though content/process: There is no evidence of any delusional thought content and thought process is linear and goal-directed. Memory and concentration: AOX3, grossly intact for the purposes of this session Judgment and insight: Poor, Improving mildly Assessment Major depressive disorder, severe, without psychotic features rule out bipolar depression Alcohol use disorder, currently withdrawal PTSD Cannabis use disorder Nicotine dependence Plan: -Patient continues to meet criteria for inpatient psychiatric admission for s ymptom stabilization and safety. Patient has signed adult voluntary form and medication consent and was placed in patient's chart. -Medications: Decrease Zyprexa to 7.5 mg qhs for mood stabilization/mood adjunct. Increased Prozac 40 mg daily for mood/anxiety. Continue with prazosin 1 mg daily at bedtime for nightmares. Continue with trazodone 50 mg daily at bedtime for insomnia/mood. -When necessary Ativan and Geodon for agitation/aggression. -Continue with CIWA protocol with Ativan when necessary for alcohol withdrawal -NRT - nicotine patch -SW on board for discharge planning. Encouraged the patient to participate in milieu. Patient is willing to go back to rehab upon discharge when she is psychiatrically stable. Patient is set to go to rehab Friday.
[2020-01-19] MEDS ORDERED: FLUoxetine HCL 20 MG CAP PO ONE (09:00)
[2020-01-19] MEDS: OLANZapine 2.5 MG TAB PO SCH (20:16)
[2020-01-19] MEDS: PRAZOSIN 1 MG CAP PO SCH (20:16)
[2020-01-19] MEDS: traZODone HCL 50 MG TAB PO SCH (20:16)
[2020-01-19 22:03] LABS: HIV 2 AB Non-Reactive (Non-Reactive); HIV AB P24 Non-Reactive (Non-Reactive); HIV P24 AG Non-Reactive (Non-Reactive)
[2020-01-20] MEDS: FLUoxetine HCL 20 MG CAP PO SCH (09:09)
[2020-01-20] MEDS: NICOTINE 7MG/24HR PATCH TRANSDERM SCH (09:09)
[2020-01-20] MEDS: LORazepam 1 MG TAB PO PRN ×2 (09:10→17:11)
--- NOTE | 2020-01-20 09:28 | P.PN ---
Progress Note - Text Progress Note Date: 01/20/20 Interval History: Patient was seen this morning and was directable and agreeable to speak with ji varela in the office. Patient appeared to be endorsing mild improvement in her overall state today. Patient appears to be having an improvement in her affect. She continues to complain of anxiety at times during the day mainly about where she'll be discharged to. She continues to state that she is willing to go to rehab and her intake date is scheduled for Friday. She also claims that she has been having improvement in her energy level during the day. She states that she is happy that she does not have nightmares any longer and claims that she was sleeping much better last night. She claims that she is willing to go to her 's place upon discharge prior to going to rehab and claims that she feels that she will be safe there. Patient was agreeable to continue on with the medications. sHe states that she is trying to go to groups. At this time patient denies any suicidal or homical ideations, intent or plan. Patient denies any auditory, visual hallucinations and denies any paranoia or delusions. Patient denies any side effects from the medications and has been compliant with meds. Mental Status Exam: General Appearance: Patient appears to be stated age is alert, attempts to be cooperative. Appears to have improving hygiene and grooming. Behavior: Patient is calmly seated without any agitated behavior. Speech: Patient's speech is fluent and nonpressured. Mood/Affect: Mood is improving mildly, affect is congruent Suicidality/Homicidality: Patient denies having any suicidal or homicidal ideation intent or plan. Perceptions: Patient denies any visual hallucinations and denies any auditory hallucinations Though content/process: There is no evidence of any delusional thought content and thought process is linear and goal-directed. Memory and concentration: AOX3, grossly intact for the purposes of this session Judgment and insight: Improving mildly Assessment Major depressive disorder, severe, without psychotic features rule out bipolar depression Alcohol use disorder, currently withdrawal PTSD Cannabis use disorder Nicotine dependence Plan: -Patient continues to meet criteria for inpatient psychiatric admission for symptom stabilization and safety. Patient has signed adult voluntary form and medication consent and was placed in patient's chart. -Medications: Continue with Zyprexa to 7.5 mg qhs for mood stabilization/mood adjunct. Continue with Prozac 40 mg daily for mood/anxiety. Continue with prazosin 1 mg daily at bedtime for nightmares. Continue with trazodone 50 mg daily at bedtime for insomnia/mood. -When necessary Ativan and Geodon for agitation/aggression. -Continue with CIWI protocol with Ativan when necessary for alcohol withdrawal -NRT - nicotine patch -SW on board for discharge planning. Encouraged the patient to participate in milieu. Patient is set to go to rehab Friday morning. Patient will likely be discharged tomorrow to 's house and he will be taking her to rehab.
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
[2020-01-20] MEDS: ACETAMINOPHEN TAB 325 MG TAB PO PRN ×2 (11:28→21:57)
[2020-01-20 16:12] LABS: Hepatitis A Antibody IgM Non-Reactive (Non-Reactive); Hepatitis B Core IgM Non-Reactive (Non-Reactive); Hepatitis B Surface Antigen Non-Reactive (Non-Reactive); Hepatitis C IgG Antibody Non-Reactive (Non-Reactive)
[2020-01-20] MEDS: PRAZOSIN 1 MG CAP PO SCH (20:47)
[2020-01-20] MEDS: traZODone HCL 50 MG TAB PO SCH (20:47)
[2020-01-20] MEDS: OLANZapine 2.5 MG TAB PO SCH (20:47)
[2020-01-21 06:18] VITALS: RESP 17; TEMP 97.4
[2020-01-21] MEDS: NICOTINE 7MG/24HR PATCH TRANSDERM SCH (08:34)
[2020-01-21] MEDS: FLUoxetine HCL 20 MG CAP PO SCH (08:34)
[2020-01-21] MEDS: ACETAMINOPHEN TAB 325 MG TAB PO PRN (08:35)
[2020-01-21 08:38] VITALS: BP 103/57; PULSE 88
[2020-01-21] MEDS ORDERED: IBUPROFEN 600 MG TAB PO PRN (09:21)
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
[2020-01-22] MEDS ORDERED: FLUoxetine HCL 20 MG CAP PO SCH (09:00)
== END 2020-01-21 11:06 | disposition home or self-care (01) | DRG 885 ==
LOC: EC 19:21 → 3MHU 01-15 06:15
PROVIDERS: ADMIT Psychiatry & Neurology Psychiatry; ATTEND Psychiatry & Neurology Psychiatry
DX: F33.2 Major depressive disorder, recurrent severe without psychotic features (principal); F10.239 Alcohol dependence with withdrawal, unspecified; R45.851 Suicidal ideations; D72.829 Elevated white blood cell count, unspecified; E78.5 Hyperlipidemia, unspecified; F12.10 Cannabis abuse, uncomplicated; F43.10 Post-traumatic stress disorder, unspecified; G47.00 Insomnia, unspecified; Z91.5 Personal history of self-harm; F17.210 Nicotine dependence, cigarettes, uncomplicated; Z59.0 Homelessness; Z62.810 Personal history of physical and sexual abuse in childhood; Z79.899 Other long term (current) drug therapy; Z83.3 Family history of diabetes mellitus; Z87.442 Personal history of urinary calculi; Z91.410 Personal history of adult physical and sexual abuse; F15.11 Other stimulant abuse, in remission; Z71.51 Drug abuse counseling and surveillance of drug abuser; Z88.2 Allergy status to sulfonamides
CPT/HCPCS: 80053; 80061; 80074; 80306; 81001; 81025; 82075; 83036; 84443; 85025; 86780; 87390; 99285

== ENCOUNTER 2020-03-31 04:51 | Emergency (ER) | payer OTHER ==
[2020-03-31 05:03] VITALS: BP 120/85; PULSE 81; RESP 18; TEMP 98.4
[2020-03-31] MEDS ORDERED: diphenhydrAMINE 50 MG/ML 1 ML VIAL IVP STA (05:20)
[2020-03-31] MEDS ORDERED: SODIUM CHLORIDE 0.9% 500 ML 500 ML IV STA (05:20)
[2020-03-31] MEDS ORDERED: METOCLOPRAMIDE 5 MG/ML 2 ML VIAL IVP STA (05:20)
[2020-03-31] MEDS ORDERED: KETOROLAC 15 MG/ML 1 ML VIAL IVP STA (05:20)
--- NOTE | 2020-03-31 05:28 | ED ---
Headache HPI - General Chief Complaint: Headache Stated Complaint: Headache Time Seen by Provider: 03/31/20 04:59 Mode of arrival: ambulatory Limitations: no limitations - History of Present Illness Initial Comments: This patient is 34-year-old woman who presents to be evaluated for bifrontal headache. She states the headache it started this morning while she was at rest and has gotten progressively worse to the course today. She did try some counter medications at home which did not seem to cause much improvement. When she started having nausea and vomiting she decided to come here for evaluation. Patient has not had fever or chills. No neck pain or stiffness. She has had a little bit of congestion. Patient denies any neurologic symptoms. She also notes that she had misplaced her glasses and there may be a component of eyestrain. MD Complaint: headache Onset/Timin -: hour(s) Onset Description: gradual Location: right, left, frontal Severity: severe Quality: aching, constant Consistency: constant Improves With: nothing Worsens With: none Context: occurred at rest Associated Symptoms: nausea Treatments Prior to Arrival: Ibuprofen - Related Data Previous Rx's Medication Instructions Recorded Acetaminophen Tab [Tylenol] 650 mg PO Q4HR PRN tab 01/21/20 FLUoxetine HCL [PROzac] 60 mg PO DAILY 30 Days cap 01/21/20 Ibuprofen [Motrin] 600 mg PO Q8H PRN 30 Days tab 01/21/20 Nicotine 7Mg/24Hr Patch [Habitrol] 1 patch TRANSDERM DAILY 14 Days 01/21/20 patch OLANZapine [ZyPREXA] 7.5 mg PO HS 30 Days tablet 01/21/20 Prazosin [Minipress] 1 mg PO HS 30 Days cap 01/21/20 traZODone HCL [Desyrel] 50 mg PO HS 30 Days tab 01/21/20 Allergies Allergy/AdvReac Type Severity Reaction Status Date / Time Sulfa (Sulfonamide Allergy Severe Anaphylaxis Verified 03/31/20 04:56 Antibiotics) sulfamethoxazole Allergy Anaphylaxis Verified 03/31/20 04:56 [From Bactrim] trimethoprim [From Bactrim] Allergy Anaphylaxis Verified 03/31/20 04:56 Review of Systems ROS Statement: Those systems with pertinent positive or pertinent negative responses have been documented in the HPI. ROS Other: All systems not noted in ROS Statement are negative. Constitutional: Denies: fever, chills Eyes: Denies: eye pain, vision change ENT: Reports: congestion. Denies: ear pain, throat pain, dental pain, hearing loss Respiratory: Denies: cough, dyspnea Gastrointestinal: Reports: nausea. Denies: abdominal pain, vomiting Musculoskeletal: Denies: back pain Skin: Denies: rash Neurological: Denies: headache, weakness, numbness, paresthesias, confusion Past Medical History Past Medical History: Thyroid Disorder Additional Past Medical History / Comment(s): kidney stone hospitalization History of Any Multi-Drug Resistant Organisms: None Reported Past Surgical History: Tubal Ligation Additional Past Surgical History / Comment(s): d&c Past Psychological History: Anxiety, Depression Smoking Status: Current every day smoker Past Alcohol Use History: Occasional Past Drug Use History: None Reported - Past Family History Mother Family Medical History: Cancer, Diabetes Mellitus General Exam Limitations: no limitations General appearance: alert, in no apparent distress Head exam: Present: atraumatic, normocephalic Eye exam: Present: normal appearance, PERRL, EOMI. Absent: scleral icterus, conjunctival injection, nystagmus ENT exam: Present: normal oropharynx, mucous membranes moist, TM's normal bilaterally, normal external ear exam Neck exam: Present: normal inspection, full ROM. Absent: tenderness, meningismus Back exam: Present: normal inspection. Absent: CVA tenderness (R), CVA tenderness (L) Neurological exam: Present: alert, oriented X3, CN II-XII intact, normal gait. Absent: motor sensory deficit Skin exam: Present: warm, dry, intact, normal color. Absent: rash Course Vital Signs 03/31/20 04:59 Temperature 98.4 F Pulse Rate 81 Respiratory 18 Rate Blood Pressure 120/85 O2 Sat by Pulse 98 Oximetry Medical Decision Making - Medical Decision Making Patient's 34-year-old woman with headache that has had marked improvement with medications here. We discussed further studies including lumbar puncture, and follow-up with neurology for MRI, at this point patient declining LP and will follow with neurology should her headache not completely resolved. She understands to return immediately if the symptoms worsen or any new symptoms develop. Disposition Clinical Impression: Headache Disposition: HOME SELF-CARE Condition: Good Instructions (If sedation given, give patient instructions): Acute Headache (ED) Is patient prescribed a controlled substance at d/c from ED?: No Referrals: Raya Aquino MD [Primary Care Provider] - 1-2 days
--- NOTE | 2020-03-31 05:38 | CT ---
EXAM: CT Head Without Intravenous Contrast CLINICAL HISTORY: ITS.REASON CT Reason: headache TECHNIQUE: Axial computed tomography images of the head/brain without intravenous contrast. CTDI is 49.27 mGy and DLP is 1062.4 mGy-cm. This CT exam was performed using one or more of the following dose reduction techniques: automated exposure control, adjustment of the mA and/or kV according to patient size, and/or use of iterative reconstruction technique. COMPARISON: No relevant prior studies available. FINDINGS: No acute intracranial hemorrhage. No midline shift or mass effect. The territorial taylor-white matter differentiation is maintained throughout. The ventricles and sulci are commensurate with age. The visualized orbits appear grossly unremarkable. The calvarium is intact. The visualized paranasal sinuses and mastoid air cells are grossly clear. IMPRESSION: No acute intracranial hemorrhage, midline shift, or mass effect.
== END 2020-03-31 06:05 | disposition home or self-care (01) ==
LOC: EC 04:51
DX: R51.9 Headache, unspecified (principal); F17.200 Nicotine dependence, unspecified, uncomplicated; Z88.2 Allergy status to sulfonamides; Z88.1 Allergy status to other antibiotic agents
CPT/HCPCS: 70450; 99284; 96374; 96375 ×2; J1200; J2765; J1885

== ENCOUNTER 2020-09-20 21:14 | Emergency (ER) | payer OTHER ==
[2020-09-20 21:25] VITALS: RESP 18; TEMP 98.5
[2020-09-20] MEDS ORDERED: LORazepam 2 MG/ML INJ IV STA (21:35)
[2020-09-20] MEDS ORDERED: ONDANSETRON 4 MG/2 ML VIAL IVP STA (21:35)
[2020-09-20] MEDS ORDERED: IPRATROPIUM-ALBUTEROL 3 ML NEB INHALATION STA (21:35)
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
[2020-09-20] MEDS ORDERED: LORazepam 1 MG TAB PO STA (23:00)
[2020-09-20 23:17] VITALS: BP 105/85; PULSE 110
== END 2020-09-20 23:26 | disposition home or self-care (01) ==
LOC: EC 21:14
DX: F41.0 Panic disorder [episodic paroxysmal anxiety] (principal); F17.200 Nicotine dependence, unspecified, uncomplicated; Z88.2 Allergy status to sulfonamides
CPT/HCPCS: 99284; 96374; 96375; 94640; J2060; J2405

== ENCOUNTER 2020-12-12 02:39 | Inpatient (IN) | payer MEDICAID, OTHER ==
[2020-12-12 04:45] LABS: Basophils % (A) 0 %; Eosinophils % (A) 0 %; HCT 36.6 % (34.0-46.0); HGB 12.4 gm/dL (11.4-16.0); Lymphocytes # (A) 2.6 k/uL (1.0-4.8); Lymphocytes % (A) 27 %; MCH 31.4 pg (25.0-35.0); MCHC 33.9 g/dL (31.0-37.0); MCV 92.9 fL (80.0-100.0); Mean Platelet Volume 6.8; Monocytes # (A) 0.4 k/uL (0-1.0); Monocytes % (A) 5 %; Neutrophils # (A) 6.2 k/uL (1.3-7.7); Neutrophils % (A) 65 %; Platelet Count 301 k/uL (150-450); RBC 3.94 m/uL (3.80-5.40); RDW 12.1 % (11.5-15.5); WBC 9.5 k/uL (3.8-10.6)
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
[2020-12-12 05:13] LABS: African American GFR (CKD) >90 (>60 ml/min/1.73 sqM); Anion Gap 12 mmol/L; Blood Urea Nitrogen 6 mg/dL (7-17); Calcium 8.8 mg/dL (8.4-10.2); Carbon Dioxide 20 mmol/L (22-30); Chloride 109 mmol/L (98-107); Glucose 117 mg/dL (74-99); Non-African American GFR(CKD) >90 (>60 ml/min/1.73 sqM); Potassium 3.4 mmol/L (3.5-5.1); Sodium 141 mmol/L (137-145)
[2020-12-12] MEDS ORDERED: ACETAMINOPHEN TAB 500 MG TAB PO STA (11:26)
--- NOTE | 2020-12-12 13:02 | ED ---
General Adult HPI - General Chief complaint: Psychiatric Symptoms Stated complaint: Police petition Time Seen by Provider: 12/12/20 02:55 Source: patient, police Mode of arrival: ambulatory Limitations: no limitations - Related Data Home Medications Medication Instructions Recorded Confirmed Acetaminophen Tab [Tylenol Tab] 1,000 mg PO Q6HR PRN 12/12/20 12/12/20 Phenylephrine/Dm/Acetaminop/GG 30 ml PO Q4H PRN 12/12/20 12/12/20 [Vicks Dayquil Severe Cold-Flu] Allergies Allergy/AdvReac Type Severity Reaction Status Date / Time Sulfa (Sulfonamide Allergy Severe Anaphylaxis Verified 12/12/20 08:06 Antibiotics) sulfamethoxazole Allergy Anaphylaxis Verified 12/12/20 08:06 [From Bactrim] trimethoprim [From Bactrim] Allergy Anaphylaxis Verified 12/12/20 08:06 Review of Systems ROS Statement: Those systems with pertinent positive or pertinent negative responses have been documented in the HPI. ROS Other: All systems not noted in ROS Statement are negative. Past Medical History Past Medical History: Thyroid Disorder Additional Past Medical History / Comment(s): kidney stone hospitalization History of Any Multi-Drug Resistant Organisms: None Reported Past Surgical History: Tubal Ligation Additional Past Surgical History / Comment(s): d&c Past Psychological History: Anxiety, Bipolar, Depression, Schizophrenia Smoking Status: Current every day smoker Past Alcohol Use History: Occasional Past Drug Use History: None Reported - Past Family History Mother Family Medical History: Cancer, Diabetes Mellitus General Exam Limitations: no limitations Course Vital Signs 12/12/20 12/12/20 12/12/20 02:48 03:00 04:00 Temperature 98.6 F Pulse Rate 80 Respiratory 18 18 18 Rate Blood Pressure 110/70 O2 Sat by Pulse 96 Oximetry 12/12/20 12/12/20 12/12/20 05:00 06:00 08:00 Temperature Pulse Rate 94 Respiratory 18 18 18 Rate Blood Pressure 100/56 O2 Sat by Pulse 96 Oximetry Medical Decision Making - Medical Decision Making Dr. Ellis signed out this patient to me. - Lab Data Result diagrams: 12/12/20 04:28 12/12/20 04:28 Lab Results 12/12/20 12/12/20 12/12/20 Range/Units 04:28 04:28 11:00 WBC 9.5 (3.8-10.6) k/uL RBC 3.94 (3.80-5.40) m/uL Hgb 12.4 (11.4-16.0) gm/dL Hct 36.6 (34.0-46.0) % MCV 92.9 (80.0-100.0) fL MCH 31.4 (25.0-35.0) pg MCHC 33.9 (31.0-37.0) g/dL RDW 12.1 (11.5-15.5) % Plt Count 301 (150-450) k/uL MPV 6.8 Neutrophils % 65 % Lymphocytes % 27 % Monocytes % 5 % Eosinophils % 0 % Basophils % 0 % Neutrophils # 6.2 (1.3-7.7) k/uL Lymphocytes # 2.6 (1.0-4.8) k/uL Monocytes # 0.4 (0-1.0) k/uL Eosinophils # 0.0 (0-0.7) k/uL Basophils # 0.0 (0-0.2) k/uL Sodium 141 (137-145) mmol/L Potassium 3.4 L (3.5-5.1) mmol/L Chloride 109 H (98-107) mmol/L Carbon Dioxide 20 L (22-30) mmol/L Anion Gap 12 mmol/L BUN 6 L (7-17) mg/dL Creatinine 0.66 (0.52-1.04) mg/dL Est GFR (CKD-EPI)AfAm >90 (>60 ml/min/1.73 sqM) Est GFR (CKD-EPI)NonAf >90 (>60 ml/min/1.73 sqM) Glucose 117 H (74-99) mg/dL Calcium 8.8 (8.4-10.2) mg/dL Coronavirus (PCR) Not Detected (Not Detectd) Disposition Clinical Impression: Depression, Suicidal ideation Disposition: ADMITTED IP TO THIS HOSP Referrals: None,Stated [Primary Care Provider] - 1-2 days Time of Disposition: 13:02
[2020-12-12] MEDS ORDERED: MAG HYDROX/AL HYDROX/SIMETH 30 ML CUP PO PRN (13:56)
[2020-12-12] MEDS ORDERED: MAGNESIUM HYDROXIDE 2,400 MG/10 ML CUP PO PRN (13:56)
[2020-12-12] MEDS ORDERED: ACETAMINOPHEN TAB 325 MG TAB PO PRN (13:56)
[2020-12-12] MEDS ORDERED: haloperidoL 5 MG TAB PO PRN (14:02)
[2020-12-12] MEDS ORDERED: HALOPERIDOL LACTATE 5 MG/ML 1 ML VIAL IM PRN (14:02)
[2020-12-12] MEDS ORDERED: LORazepam 2 MG/ML INJ IM PRN (14:02)
[2020-12-12] MEDS: LORazepam 1 MG TAB PO PRN ×2 (14:52→20:59)
[2020-12-12] MEDS: NICOTINE 7MG/24HR PATCH TRANSDERM SCH (17:17)
--- NOTE | 2020-12-13 01:54 | P.CONS ---
History of Present Illness - Reason for Consult Consult date: 12/12/20 - History of Present Illness Patient is a 35-year-old female with a PMH of hypothyroidism who presented to the emergency room due to suicidal ideation. The patient was under the mental health unit where she was seen and evaluated compared by mental health unit RN [facility]. I was never alone with the patient. Patient reports that she has been having ongoing social difficulties with her relationship with her along with multiple other issues that arose while she was incarcerated. The patient notes that she was incarcerated due to hensley theft. She denied any physical complaints. Denied any chronic illnesses like for hypothyroidism. Denied chest discomfort, shortness of breath, fever, chills, cough. Denied nausea, vomiting, abdominal pain, diarrhea. Reports using recreational marijuana along with smoking a few cigarettes a day but denied any additional substance use or alcohol abuse. Review of systems: Pertinent positives and negatives as discussed in HPI, a complete review of systems was performed and all other systems are negative. Physical examination: General: non toxic, no distress, appears at stated age, obese Derm: no unusual rashes/lesions no unusual ecchymoses, warm, dry Head: atraumatic, normocephalic, symmetric Eyes: EOMI, no lid lag, anicteric sclera, pupils equal round reactive to light ENT: Nose and ears atraumatic, no thrush, no pharyngeal erythema Neck: No thyromegaly, no cervical lymphadenopathy, trachea midline, supple Mouth: no lip lesion, mucus membranes moist Cardiovascular: S1S2 reg, no murmur, positive posterior tibial pulse bilateral, no edema, capillary refill less than 2 seconds Lungs: CTA bilateral, no rhonchi, no rales , no accessory muscle use Abdominal: soft, nontender to palpation, no guarding, no appreciable organomegaly, normal bowel sounds Ext: no gross muscle atrophy, muscle strength 5 out of 5 in all 4 extremities grossly, no contractures, Neuro: CN II-XI grossly intact, light touch intact all 4 extremities, finger to nose within normal limits, Psych: Alert, oriented, appropriate affect Assessment/plan Hypokalemia -Replace and monitor -Patient advised on increasing her oral potassium intake via potassium rich foods Tobacco abuse -Advised on importance of cessation Depression and suicidal ideation -As per psychiatry Thank you for allowing us to participate in the care of this patient. We will follow peripherally. Do not hesitate to contact us with questions. Someone can be reached from the [facility] hospitalist group at all hours of the day at [phone]. Past Medical History Past Medical History: Thyroid Disorder Additional Past Medical History / Comment(s): kidney stone hospitalization History of Any Multi-Drug Resistant Organisms: None Reported Past Surgical History: Tubal Ligation Additional Past Surgical History / Comment(s): d&c Past Anesthesia/Blood Transfusion Reactions: No Reported Reaction Past Psychological History: Anxiety, Bipolar, Depression, Schizophrenia Smoking Status: Current some day smoker Past Alcohol Use History: Occasional Past Drug Use History: None Reported - Past Family History Mother Family Medical History: Cancer, Diabetes Mellitus Medications and Allergies Home Medications Medication Instructions Recorded Confirmed Type Acetaminophen Tab [Tylenol Tab] 1,000 mg PO Q6HR PRN 12/12/20 12/12/20 History Phenylephrine/Dm/Acetaminop/GG 30 ml PO Q4H PRN 12/12/20 12/12/20 History [Gianna Dayanali Severe Cold-Flu] Allergies Allergy/AdvReac Type Severity Reaction Status Date / Time Sulfa (Sulfonamide Allergy Severe Anaphylaxis Verified 12/12/20 08:06 Antibiotics) sulfamethoxazole Allergy Anaphylaxis Verified 12/12/20 08:06 [From Bactrim] trimethoprim [From Bactrim] Allergy Anaphylaxis Verified 12/12/20 08:06 Physical Exam Vitals: Vital Signs Temp Pulse Pulse Resp BP BP Pulse Ox 12/12/20 15:01 97.8 F 88 20 118/74 12/12/20 08:00 94 18 100/56 96 12/12/20 06:00 18 12/12/20 05:00 18 12/12/20 04:00 18 12/12/20 03:00 18 12/12/20 02:48 98.6 F 80 18 110/70 96 Intake and Output 12/12/20 12/12/20 12/13/20 14:59 22:59 06:59 Other: Weight 81.647 kg Results CBC & Chem 7: 12/12/20 04:28 12/12/20 04:28 Labs: Abnormal Lab Results - Last 24 Hours (Table) 12/12/20 Range/Units 04:28 Potassium 3.4 L (3.5-5.1) mmol/L Chloride 109 H (98-107) mmol/L Carbon Dioxide 20 L (22-30) mmol/L BUN 6 L (7-17) mg/dL Glucose 117 H (74-99) mg/dL
[2020-12-13] MEDS ORDERED: POTASSIUM CHLORIDE ER 20 MEQ TAB.ER PO SCH (02:00)
[2020-12-13 08:13] LABS: Basophils # (A) 0.1 k/uL (0-0.2); Basophils % (A) 0 %; Eosinophils # (A) 0.1 k/uL (0-0.7); Eosinophils % (A) 1 %; HCT 38.2 % (34.0-46.0); Lymphocytes # (A) 2.8 k/uL (1.0-4.8); Lymphocytes % (A) 25 %; MCV 94.2 fL (80.0-100.0); Mean Platelet Volume 6.8; Monocytes # (A) 0.3 k/uL (0-1.0); Monocytes % (A) 3 %; Neutrophils # (A) 7.9 k/uL (1.3-7.7); Neutrophils % (A) 70 %; Platelet Count 272 k/uL (150-450); RBC 4.06 m/uL (3.80-5.40); RDW 12.1 % (11.5-15.5); WBC 11.2 k/uL (3.8-10.6)
[2020-12-13] MEDS: NICOTINE 7MG/24HR PATCH TRANSDERM SCH (08:27)
[2020-12-13] MEDS: POTASSIUM CHLORIDE ER 20 MEQ TAB.ER PO SCH ×2 (08:28→10:25)
[2020-12-13] MEDS: LORazepam 1 MG TAB PO PRN ×3 (08:30→21:04)
[2020-12-13 09:25] LABS: ALT 23 U/L (4-34); AST 24 U/L (14-36); African American GFR (CKD) >90 (>60 ml/min/1.73 sqM); Albumin 3.5 g/dL (3.5-5.0); Alkaline Phosphatase 57 U/L (38-126); Anion Gap 6 mmol/L; Blood Urea Nitrogen 14 mg/dL (7-17); Carbon Dioxide 26 mmol/L (22-30); Chloride 107 mmol/L (98-107); Glucose 103 mg/dL (74-99); Non-African American GFR(CKD) >90 (>60 ml/min/1.73 sqM); Sodium 139 mmol/L (137-145); Total Bilirubin 0.4 mg/dL (0.2-1.3); Total Protein 6.1 g/dL (6.3-8.2)
[2020-12-13] MEDS ORDERED: FLUoxetine HCL 10 MG CAP PO STA (10:23)
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
[2020-12-13 19:05] LABS: Chol/HDL Ratio 3.85 Ratio
[2020-12-13 19:09] LABS: Appearance,Urine Clear (Clear); Bilirubin,Urine Negative (Negative); Blood,Urine Trace (Negative); Color,Urine Light Yellow; Glucose,Urine (UA) Negative (Negative); Ketones,Urine Negative (Negative); Leukocyte Esterase,Urine Moderate (Negative); Nitrite,Urine Negative (Negative); Protein,Urine Negative (Negative); RBC,Urine 4 /hpf (0-5); Specific Gravity,Urine 1.016 (1.001-1.035); Squamous Epithelial Cell,Urine 1 /hpf (0-4); Urobilinogen,Urine <2.0 mg/dL (<2.0); WBC,Urine 37 /hpf (0-5)
[2020-12-13] MEDS ORDERED: OLANZapine 2.5 MG TAB PO SCH (21:00)
[2020-12-13] MEDS: NITROFURANTOIN MONOHYD/M-CRYST 100 MG CAP PO SCH (23:09)
[2020-12-14] MEDS: NITROFURANTOIN MONOHYD/M-CRYST 100 MG CAP PO SCH ×2 (08:20→21:30)
[2020-12-14] MEDS: FLUoxetine HCL 10 MG CAP PO SCH (08:20)
[2020-12-14] MEDS: NICOTINE 7MG/24HR PATCH TRANSDERM SCH (08:20)
[2020-12-14] MEDS: LORazepam 1 MG TAB PO PRN ×3 (08:24→21:30)
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
[2020-12-14] MEDS ORDERED: PRAZOSIN 1 MG CAP PO SCH (21:00)
[2020-12-14] MEDS ORDERED: OLANZapine 5 MG TAB PO SCH (21:00)
[2020-12-15 06:44] VITALS: BP 89/53; PULSE 77; RESP 15; TEMP 97.8
[2020-12-15] MEDS: NITROFURANTOIN MONOHYD/M-CRYST 100 MG CAP PO SCH (08:17)
[2020-12-15] MEDS: NICOTINE 7MG/24HR PATCH TRANSDERM SCH (08:17)
[2020-12-15] MEDS: FLUoxetine HCL 10 MG CAP PO SCH (08:17)
[2020-12-15] MEDS: LORazepam 1 MG TAB PO PRN (08:20)
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
== END 2020-12-15 12:00 | disposition home or self-care (01) | DRG 885 ==
LOC: EC 02:39 → 3MHU 13:52
PROVIDERS: ADMIT Psychiatry & Neurology Psychiatry; ATTEND Psychiatry & Neurology Psychiatry
DX: F33.2 Major depressive disorder, recurrent severe without psychotic features (principal); E03.9 Hypothyroidism, unspecified; E87.6 Hypokalemia; F10.10 Alcohol abuse, uncomplicated; F12.10 Cannabis abuse, uncomplicated; Z20.822 Contact with and (suspected) exposure to COVID-19; F15.90 Other stimulant use, unspecified, uncomplicated; F17.210 Nicotine dependence, cigarettes, uncomplicated; F20.9 Schizophrenia, unspecified; F31.9 Bipolar disorder, unspecified; F43.10 Post-traumatic stress disorder, unspecified; Z63.0 Problems in relationship with spouse or partner; Z79.899 Other long term (current) drug therapy; Z82.0 Family history of epilepsy and other diseases of the nervous system; Z83.3 Family history of diabetes mellitus; Z87.442 Personal history of urinary calculi
CPT/HCPCS: 36415; 70491; 80048; 80053; 80061; 81001; 81025; 82075; 83036; 84443; 85025; 87635; 99285

== ENCOUNTER 2021-03-02 10:50 | Emergency (ER) | payer OTHER ==
[2021-03-02 10:59] VITALS: BP 134/84; PULSE 75; RESP 18; TEMP 98
[2021-03-02] MEDS ORDERED: HYDROcodone/APAP 5-325MG 1 EACH TAB PO STA (11:41)
--- NOTE | 2021-03-02 12:00 | XR ---
EXAMINATION TYPE: XR knee complete RT DATE OF EXAM: 03/02/2021 CLINICAL HISTORY: Pain after fall injury TECHNIQUE: Three views of the right knee are obtained. COMPARISON: None. FINDINGS: There is no acute fracture/dislocation evident in right knee. The tri-compartment joint s paces appear within normal limits. The overlying soft tissue appears unremarkable. IMPRESSION: There is no acute fracture or dislocation in the right knee.
[2021-03-02] MEDS ORDERED: ACET/COD 300 MG/30 MG STARTER PACK 6 TAB BTL PO STA (12:13)
--- NOTE | 2021-03-02 12:14 | ED ---
Lower Extremity Injury HPI - General Chief Complaint: Extremity Injury, Lower Stated Complaint: fall, rt leg pain Time Seen by Provider: 03/02/21 11:10 Source: family, RN notes reviewed Mode of arrival: ambulatory Limitations: no limitations - History of Present Illness Initial Comments: 35-year-old female presents emergency Department with chief complaint of right knee pain. Patient states that she had injury yesterday when she slipped on some ice falling onto her right leg. Patient states her swelling, pain. Patient is able to ambulate but states that her pains been alleviated with Motrin. Patient denies any prior knee surgeries no prior trauma no head injury no hip or ankle pain. - Related Data Home Medications Medication Instructions Recorded Confirmed Phenylephrine/Dm/Acetaminop/GG 30 ml PO Q4H PRN 12/12/20 12/12/20 [Vicks Dayquil Severe Cold-Flu] Previous Rx's Medication Instructions Recorded FLUoxetine HCL [PROzac] 30 mg PO DAILY 30 Days cap 12/15/20 Nicotine 7Mg/24Hr Patch [Habitrol] 1 patch TRANSDERM DAILY 30 Days 12/15/20 patch Nitrofurantoin Monohyd/M-Cryst 100 mg PO BID 3 Days cap 12/15/20 [Macrobid] OLANZapine [ZyPREXA] 5 mg PO HS 30 Days tab 12/15/20 Prazosin [Minipress] 1 mg PO HS 30 Days cap 12/15/20 Ibuprofen [Motrin] 600 mg PO Q8HR PRN #30 tab 03/02/21 Allergies Allergy/AdvReac Type Severity Reaction Status Date / Time Sulfa (Sulfonamide Allergy Severe Anaphylaxis Verified 03/02/21 10:59 Antibiotics) sulfamethoxazole Allergy Anaphylaxis Verified 03/02/21 10:59 [From Bactrim] trimethoprim [From Bactrim] Allergy Anaphylaxis Verified 03/02/21 10:59 Review of Systems ROS Statement: Those systems with pertinent positive or pertinent negative responses have been documented in the HPI. ROS Other: All systems not noted in ROS Statement are negative. Past Medical History Past Medical History: Thyroid Disorder Additional Past Medical History / Comment(s): kidney stone hospitalization History of Any Multi-Drug Resistant Organisms: None Reported Past Surgical History: Tubal Ligation Additional Past Surgical History / Comment(s): d&c Past Anesthesia/Blood Transfusion Reactions: No Reported Reaction Past Psychological History: Anxiety, Bipolar, Depression, Schizophrenia Smoking Status: Current some day smoker Past Alcohol Use History: Occasional Past Drug Use History: None Reported - Past Family History Mother Family Medical History: Cancer, Diabetes Mellitus General Exam Limitations: no limitations General appearance: alert, in no apparent distress Head exam: Present: atraumatic, normocephalic, normal inspection Eye exam: Present: normal appearance, PERRL, EOMI. Absent: scleral icterus, conjunctival injection, periorbital swelling Respiratory exam: Present: normal lung sounds bilaterally. Absent: respiratory distress, wheezes, rales, rhonchi, stridor Cardiovascular Exam: Present: regular rate, normal rhythm, normal heart sounds. Absent: systolic murmur, diastolic murmur, rubs, gallop, clicks Extremities exam: Present: other (Right knee there is mild swelling, neurovascular intact no laxity for range of motion no tenderness above or below right knee) Course Vital Signs 03/02/21 10:56 Temperature 98 F Pulse Rate 75 Respiratory 18 Rate Blood Pressure 134/84 O2 Sat by Pulse 95 Oximetry Medical Decision Making - Medical Decision Making Right knee there is no acute fracture. Patient has mild joint effusion patient most likely has swelling from trauma will follow-up with orthopedics if no improvement or return parameters were discussed. Disposition Clinical Impression: Effusion of right knee joint, Right knee sprain Disposition: HOME SELF-CARE Condition: Stable Instructions (If sedation given, give patient instructions): Knee Sprain (ED), Knee Pain (ED) Additional Instructions: Please return to the Emergency Department if symptoms worsen or any other concerns. Prescriptions: Ibuprofen [Motrin] 600 mg PO Q8HR PRN #30 tab PRN Reason: Pain Is patient prescribed a controlled substance at d/c from ED?: No Referrals: Nonstaff,Physician [Primary Care Provider] - 1-2 days Tyron Brunson MD [STAFF PHYSICIAN] - 1-2 days Time of Disposition: 12:13
== END 2021-03-02 12:24 | disposition home or self-care (01) ==
LOC: EC 10:50
DX: S83.91XA Sprain of unspecified site of right knee, initial encounter (principal); F17.200 Nicotine dependence, unspecified, uncomplicated; Z88.2 Allergy status to sulfonamides; W00.0XXA Fall on same level due to ice and snow, initial encounter
CPT/HCPCS: 99283

== ENCOUNTER 2021-04-08 08:51 | Emergency (ER) | payer OTHER ==
[2021-04-08 08:56] VITALS: BP 119/78; PULSE 94; RESP 20; TEMP 97.8
[2021-04-08] MEDS ORDERED: ACETAMINOPHEN TAB 325 MG TAB PO STA (09:03)
[2021-04-08] MEDS ORDERED: ONDANSETRON ODT 4 MG TAB PO STA (09:03)
[2021-04-08] MEDS ORDERED: KETOROLAC 15 MG/ML 1 ML VIAL IM STA (09:03)
[2021-04-08 09:30] LABS: Appearance,Urine Clear (Clear); Bilirubin,Urine Negative (Negative); Blood,Urine Small (Negative); Color,Urine Yellow; Glucose,Urine (UA) Negative (Negative); Ketones,Urine 1+ (Negative); Leukocyte Esterase,Urine Negative (Negative); Mucus,Urine Rare /hpf; Nitrite,Urine Negative (Negative); PH, Urine 6.5 (5.0-8.0); Protein,Urine 1+ (Negative); RBC,Urine 20 /hpf (0-5); Specific Gravity,Urine 1.029 (1.001-1.035); Squamous Epithelial Cell,Urine 3 /hpf (0-4); WBC,Urine 2 /hpf (0-5)
--- NOTE | 2021-04-08 09:30 | ED ---
General Adult HPI - General Chief complaint: Upper Respiratory Infection Stated complaint: Cough,Low back pain,Chills Time Seen by Provider: 04/08/21 08:58 Source: patient, RN notes reviewed Mode of arrival: ambulatory Limitations: no limitations - History of Present Illness Initial comments: 35-year-old female presents emergency Department with multiple complaints. Patient states her last 3 days she's had some increased nausea, posttussive emesis, nonproductive cough, body aches, low back pain, does not feel well reported fevers and chills. Patient said no sick contacts. Denies any current medications. Denies any localized abdominal pain no dysuria - Related Data Home Medications Medication Instructions Recorded Confirmed Phenylephrine/Dm/Acetaminop/GG 30 ml PO Q4H PRN 12/12/20 04/08/21 [Vicks Dayquil Severe Cold-Flu] Allergies Allergy/AdvReac Type Severity Reaction Status Date / Time Sulfa (Sulfonamide Allergy Severe Anaphylaxis Verified 04/08/21 09:26 Antibiotics) sulfamethoxazole Allergy Anaphylaxis Verified 04/08/21 09:26 [From Bactrim] trimethoprim [From Bactrim] Allergy Anaphylaxis Verified 04/08/21 09:26 Review of Systems ROS Statement: Those systems with pertinent positive or pertinent negative responses have been documented in the HPI. ROS Other: All systems not noted in ROS Statement are negative. Past Medical History Past Medical History: Thyroid Disorder Additional Past Medical History / Comment(s): kidney stone hospitalization History of Any Multi-Drug Resistant Organisms: None Reported Past Surgical History: Tubal Ligation Additional Past Surgical History / Comment(s): d&c Past Anesthesia/Blood Transfusion Reactions: No Reported Reaction Past Psychological History: Anxiety, Bipolar, Depression, Schizophrenia Smoking Status: Current some day smoker Past Alcohol Use History: Occasional Past Drug Use History: None Reported - Past Family History Mother Family Medical History: Cancer, Diabetes Mellitus General Exam Limitations: no limitations General appearance: alert, in no apparent distress Head exam: Present: atraumatic, normocephalic, normal inspection Eye exam: Present: normal appearance, PERRL, EOMI. Absent: scleral icterus, conjunctival injection, periorbital swelling ENT exam: Present: normal exam, normal oropharynx, mucous membranes moist Neck exam: Present: normal inspection, full ROM. Absent: tenderness, meningismus, lymphadenopathy Respiratory exam: Present: normal lung sounds bilaterally. Absent: respiratory distress, wheezes, rales, rhonchi, stridor Cardiovascular Exam: Present: regular rate, normal rhythm, normal heart sounds. Absent: systolic murmur, diastolic murmur, rubs, gallop, clicks GI/Abdominal exam: Present: soft, normal bowel sounds. Absent: distended, tenderness, guarding, rebound, rigid Course Vital Signs 04/08/21 08:53 Temperature 97.8 F Pulse Rate 94 Respiratory 20 Rate Blood Pressure 119/78 O2 Sat by Pulse 96 Oximetry Medical Decision Making - Medical Decision Making Patient is covid 19 positive. Vitals are stable. We discussed [id number] medications vitamins and return parameters. - Lab Data Lab Results 04/08/21 04/08/21 Range/Units 09:12 09:20 Urine Color Yellow Urine Appearance Clear (Clear) Urine pH 6.5 (5.0-8.0) Ur Specific [place] 1.029 (1.001-1.035) Urine Protein 1+ H (Negative) Urine Glucose (UA) Negative (Negative) Urine Ketones 1+ H (Negative) Urine Blood Small H (Negative) Urine Nitrite Negative (Negative) Urine Bilirubin Negative (Negative) Urine Urobilinogen 3.0 (<2.0) mg/dL Ur Leukocyte Esterase Negative (Negative) Urine RBC 20 H (0-5) /hpf Urine WBC 2 (0-5) /hpf Ur Squamous Epith Cells 3 (0-4) /hpf Urine Mucus Rare H (None) /hpf Coronavirus (PCR) Detected A (Not Detectd) Disposition Clinical Impression: COVID-19 Disposition: HOME SELF-CARE Condition: Stable Instructions (If sedation given, give patient instructions): Coronavirus Disease 2019 (COVID-19) Additional Instructions: Please return to the Emergency Department if symptoms worsen or any other concerns. Is patient prescribed a controlled substance at d/c from ED?: No Referrals: None,Stated [Primary Care Provider] - 1-2 days Time of Disposition: 09:30
== END 2021-04-08 09:38 | disposition home or self-care (01) ==
LOC: EC 08:51
DX: U07.1 COVID-19 (principal); Z88.2 Allergy status to sulfonamides
CPT/HCPCS: 81001; 87635; 99283; J1885

== ENCOUNTER 2021-08-16 11:08 | Emergency (ER) | payer OTHER ==
[2021-08-16 11:33] VITALS: BP 118/92; PULSE 82; RESP 18; TEMP 99
[2021-08-16 12:17] LABS: Amphetamine Screen,Urine Not Detected (NotDetected); Barbiturate Screen,Urine Not Detected (NotDetected); Benzodiazepines Screen,Urine Not Detected (NotDetected); Cocaine Screen,Urine Not Detected (NotDetected); Methadone Screen, Urine Not Detected (NotDetected); Opiate Screen,Urine Not Detected (NotDetected); Oxycodone Screen, Urine Not Detected (NotDetected); Phencyclidine Screen,Urine Not Detected (NotDetected); Tricyclic Antidepressant,Urine Not Detected (NotDetected); Urn Cannabinoid Scrn Not Detected (NotDetected)
--- NOTE | 2021-08-16 12:27 | ED ---
Psych HPI - General Chief Complaint: Psychiatric Symptoms Stated Complaint: mental health Time Seen by Provider: 08/16/21 11:16 Source: patient, EMS, RN notes reviewed Mode of arrival: EMS Limitations: no limitations - History of Present Illness Initial Comments: This a 28-year-old female presents emergency Department with chief complaint of depression, suicidal ideation. Patient states that she recently completed alcohol rehab and heroin they have at [place]. Patient states that she feels better if went but states that her mental health is off She states she is severely depressed, having intermittent suicidal ideation n. Patient denies any physical complaints denies chest pain shortness with nausea vomiting diarrhea constipation or fevers or chills. MD Complaint: suicidal ideation - Related Data Home Medications Medication Instructions Recorded Confirmed hydrOXYzine pamoate [Vistaril] 25 mg PO BID 08/16/21 08/16/21 Allergies Allergy/AdvReac Type Severity Reaction Status Date / Time Sulfa (Sulfonamide Allergy Severe Anaphylaxis Verified 08/16/21 11:56 Antibiotics) sulfamethoxazole Allergy Anaphylaxis Verified 08/16/21 11:56 [From Bactrim] trimethoprim [From Bactrim] Allergy Anaphylaxis Verified 08/16/21 11:56 Review of Systems ROS Statement: Those systems with pertinent positive or pertinent negative responses have been documented in the HPI. ROS Other: All systems not noted in ROS Statement are negative. Past Medical History Past Medical History: Thyroid Disorder Additional Past Medical History / Comment(s): kidney stone hospitalization History of Any Multi-Drug Resistant Organisms: None Reported Past Surgical History: Tubal Ligation Additional Past Surgical History / Comment(s): d&c Past Anesthesia/Blood Transfusion Reactions: No Reported Reaction Past Psychological History: Anxiety, Bipolar, Depression, Schizophrenia Smoking Status: Current some day smoker Past Alcohol Use History: Occasional Past Drug Use History: None Reported - Past Family History Mother Family Medical History: Cancer, Diabetes Mellitus General Exam Limitations: no limitations General appearance: alert, in no apparent distress Head exam: Present: atraumatic, normocephalic, normal inspection Eye exam: Present: normal appearance, PERRL, EOMI. Absent: scleral icterus, conjunctival injection, periorbital swelling ENT exam: Present: normal exam, normal oropharynx, mucous membranes moist Neck exam: Present: normal inspection, full ROM. Absent: tenderness, meningismus, lymphadenopathy Respiratory exam: Present: normal lung sounds bilaterally. Absent: respiratory distress, wheezes, rales, rhonchi, stridor Cardiovascular Exam: Present: regular rate, normal rhythm, normal heart sounds. Absent: systolic murmur, diastolic murmur, rubs, gallop, clicks Neurological exam: Present: alert, oriented X3, CN II-XII intact, reflexes normal. Absent: motor sensory deficit Psychiatric exam: Present: depressed Skin exam: Present: warm, dry, intact, normal color. Absent: rash Course Vital Signs 08/16/21 11:26 Temperature 99.0 F Pulse Rate 82 Respiratory 18 Rate Blood Pressure 118/92 O2 Sat by Pulse 97 Oximetry Medical Decision Making - Lab Data Lab Results 08/16/21 08/16/21 Range/Units 11:37 11:55 Urine Opiates Screen Not Detected (NotDetected) Ur Oxycodone Screen Not Detected (NotDetected) Urine Methadone Screen Not Detected (NotDetected) Ur Propoxyphene Screen Not Detected (NotDetected) Ur Barbiturates Screen Not Detected (NotDetected) U Tricyclic Antidepress Not Detected (NotDetected) Ur Phencyclidine Scrn Not Detected (NotDetected) Ur Amphetamines Screen Not Detected (NotDetected) U Methamphetamines Scrn Not Detected (NotDetected) U Benzodiazepines Scrn Not Detected (NotDetected) Urine Cocaine Screen Not Detected (NotDetected) U Marijuana (THC) Screen Not Detected (NotDetected) Coronavirus (PCR) Not Detected (Not Detectd) Disposition Clinical Impression: Depression Disposition: HOME SELF-CARE Is patient prescribed a controlled substance at d/c from ED?: No Referrals: None,Stated [Primary Care Provider] - 1-2 days
[2021-08-16] MEDS ORDERED: ACETAMINOPHEN TAB 325 MG TAB PO STA (14:24)
[2021-08-16] MEDS ORDERED: hydrOXYzine pamoate 25 MG CAP PO STA (14:28)
[2021-08-16] MEDS ORDERED: haloperidoL 5 MG TAB PO STA (20:38)
[2021-08-16] MEDS ORDERED: LORazepam 1 MG TAB PO STA (22:15)
== END 2021-08-16 22:26 | disposition home or self-care (01) ==
LOC: EC 11:08
DX: F32.A Depression, unspecified (principal); Z20.822 Contact with and (suspected) exposure to COVID-19; F17.200 Nicotine dependence, unspecified, uncomplicated
CPT/HCPCS: 80306; 82075; 87635; 99285

== ENCOUNTER 2021-08-31 12:36 | Emergency (ER) | payer OTHER ==
[2021-08-31] MEDS ORDERED: DIPH,PERTUS(ACELL)TETVAC-LF 0.5 ML VIAL IM ONE (13:40)
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
--- NOTE | 2021-08-31 14:14 | XR ---
EXAMINATION TYPE: XR foot complete LT DATE OF EXAM: 08/31/2021 CLINICAL HISTORY: pain TECHNIQUE: Frontal, lateral and oblique images of the left foot are obtained. COMPARISON: None. FINDINGS: There is no acute fracture/dislocation evident. The joint spaces appear within normal owens its. The overlying soft tissue appears unremarkable. IMPRESSION: There is no acute fracture or dislocation. ICD 10 NO FRACTURE, INITIAL EVALUATION
[2021-08-31 15:14] VITALS: BP 131/88; PULSE 89; RESP 16; TEMP 98
[2021-08-31] MEDS ORDERED: ACET/COD 300 MG/30 MG STARTER PACK 6 TAB BTL PO STA (15:15)
[2021-08-31] MEDS ORDERED: HYDROcodone/APAP 5-325MG 1 EACH TAB PO STA (15:15)
== END 2021-08-31 15:28 | disposition home or self-care (01) ==
LOC: EC 12:36
DX: S91.312A Laceration without foreign body, left foot, initial encounter (principal); W26.8XXA Contact with other sharp object(s), not elsewhere classified, initial encounter; Z23 Encounter for immunization
CPT/HCPCS: 81025; 90715

== ENCOUNTER 2021-10-08 03:11 | Emergency (ER) | payer OTHER ==
[2021-10-08 03:19] VITALS: RESP 18
[2021-10-08] MEDS ORDERED: ONDANSETRON 4 MG/2 ML VIAL IVP STA (04:08)
[2021-10-08] MEDS ORDERED: SODIUM CHLORIDE 0.9% 1,000 ML IV STA ×2 (04:08)
[2021-10-08] MEDS ORDERED: ACETAMINOPHEN TAB 500 MG TAB PO STA (04:08)
[2021-10-08] MEDS ORDERED: MORPHINE SULFATE 4 MG/ML SYRINGE IV STA (04:08)
[2021-10-08] MEDS ORDERED: KETOROLAC 15 MG/ML 1 ML VIAL IVP STA (04:09)
[2021-10-08] MEDS ORDERED: DEXAMETHASONE SOD PHOSPHATE 10 MG/ML 1 ML VIAL IVP STA (04:09)
--- NOTE | 2021-10-08 04:09 | ED ---
Fever HPI - General Chief Complaint: ENT Stated Complaint: Sore throat, body aches Time Seen by Provider: 10/08/21 03:29 Source: patient Mode of arrival: ambulatory Limitations: no limitations - Related Data Home Medications Medication Instructions Recorded Confirmed hydrOXYzine pamoate [Vistaril] 25 mg PO BID 08/16/21 08/16/21 Previous Rx's Medication Instructions Recorded Ciprofloxacin HCl 500 mg PO Q12H 10 Days #20 tablet 08/31/21 Diclofenac Sodium [Voltaren] 75 mg PO BID PRN #20 tab 08/31/21 Allergies Allergy/AdvReac Type Severity Reaction Status Date / Time Sulfa (Sulfonamide Allergy Severe Anaphylaxis Verified 10/08/21 03:18 Antibiotics) sulfamethoxazole Allergy Anaphylaxis Verified 10/08/21 03:18 [From Bactrim] trimethoprim [From Bactrim] Allergy Anaphylaxis Verified 10/08/21 03:18 Review of Systems ROS Statement: Those systems with pertinent positive or pertinent negative responses have been documented in the HPI. ROS Other: All systems not noted in ROS Statement are negative. Past Medical History Past Medical History: Thyroid Disorder Additional Past Medical History / Comment(s): kidney stone hospitalization History of Any Multi-Drug Resistant Organisms: None Reported Past Surgical History: Tubal Ligation Additional Past Surgical History / Comment(s): d&c Past Anesthesia/Blood Transfusion Reactions: No Reported Reaction Past Psychological History: Anxiety, Bipolar, Depression, Schizophrenia Smoking Status: Current some day smoker, Vaper Past Alcohol Use History: Occasional Past Drug Use History: None Reported - Past Family History Mother Family Medical History: Cancer, Diabetes Mellitus General Exam Limitations: no limitations Course Vital Signs 10/08/21 03:12 Temperature 98.3 F Pulse Rate 78 Respiratory 18 Rate Blood Pressure 112/77 O2 Sat by Pulse 96 Oximetry Medical Decision Making - Lab Data Result diagrams: 10/08/21 04:22 10/08/21 04:22 Lab Results 10/08/21 10/08/21 10/08/21 Range/Units 03:44 04:22 04:22 WBC 9.0 (3.8-10.6) k/uL RBC 4.38 (3.80-5.40) m/uL Hgb 13.4 (11.4-16.0) gm/dL Hct 39.8 (34.0-46.0) % MCV 91.0 (80.0-100.0) fL MCH 30.6 (25.0-35.0) pg MCHC 33.6 (31.0-37.0) g/dL RDW 12.3 (11.5-15.5) % Plt Count 295 (150-450) k/uL MPV 6.8 Neutrophils % 60 % Lymphocytes % 32 % Monocytes % 3 % Eosinophils % 3 % Basophils % 1 % Neutrophils # 5.4 (1.3-7.7) k/uL Lymphocytes # 2.9 (1.0-4.8) k/uL Monocytes # 0.3 (0-1.0) k/uL Eosinophils # 0.2 (0-0.7) k/uL Basophils # 0.1 (0-0.2) k/uL Sodium (137-145) mmol/L Potassium (3.5-5.1) mmol/L Chloride (98-107) mmol/L Carbon Dioxide (22-30) mmol/L Anion Gap mmol/L BUN (7-17) mg/dL Creatinine (0.52-1.04) mg/dL Est GFR (CKD-EPI)AfAm (>60 ml/min/1.73 sqM) Est GFR (CKD-EPI)NonAf (>60 ml/min/1.73 sqM) Glucose (74-99) mg/dL Calcium (8.4-10.2) mg/dL Phosphorus (2.5-4.5) mg/dL Magnesium (1.6-2.3) mg/dL Total Bilirubin (0.2-1.3) mg/dL AST (14-36) U/L ALT (4-34) U/L Alkaline Phosphatase (38-126) U/L Lactate Dehydrogenase (313-618) U/L C-Reactive Protein (<1.0) mg/dL Total Protein (6.3-8.2) g/dL Albumin (3.5-5.0) g/dL Urine Color Yellow Urine Appearance Clear (Clear) Urine pH 6.0 (5.0-8.0) Ur Specific [place] 1.034 (1.001-1.035) Urine Protein Trace H (Negative) Urine Glucose (UA) Negative (Negative) Urine Ketones Negative (Negative) Urine Blood Small H (Negative) Urine Nitrite Negative (Negative) Urine Bilirubin Negative (Negative) Urine Urobilinogen <2.0 (<2.0) mg/dL Ur Leukocyte Esterase Trace H (Negative) Urine RBC 4 (0-5) /hpf Urine WBC 4 (0-5) /hpf Ur Squamous Epith Cells 2 (0-4) /hpf Urine Mucus Rare H (None) /hpf Coronavirus (PCR) Not Detected (Not Detectd) Influenza Type A RNA (Not Detectd) Influenza Type B (PCR) (Not Detectd) 10/08/21 10/08/21 Range/Units 04:22 04:30 WBC (3.8-10.6) k/uL RBC (3.80-5.40) m/uL Hgb (11.4-16.0) gm/dL Hct (34.0-46.0) % MCV (80.0-100.0) fL MCH (25.0-35.0) pg MCHC (31.0-37.0) g/dL RDW (11.5-15.5) % Plt Count (150-450) k/uL MPV Neutrophils % % Lymphocytes % % Monocytes % % Eosinophils % % Basophils % % Neutrophils # (1.3-7.7) k/uL Lymphocytes # (1.0-4.8) k/uL Monocytes # (0-1.0) k/uL Eosinophils # (0-0.7) k/uL Basophils # (0-0.2) k/uL Sodium 137 (137-145) mmol/L Potassium 3.9 (3.5-5.1) mmol/L Chloride 108 H (98-107) mmol/L Carbon Dioxide 20 L (22-30) mmol/L Anion Gap 9 mmol/L BUN 15 (7-17) mg/dL Creatinine 0.53 (0.52-1.04) mg/dL Est GFR (CKD-EPI)AfAm >90 (>60 ml/min/1.73 sqM) Est GFR (CKD-EPI)NonAf >90 (>60 ml/min/1.73 sqM) Glucose 131 H (74-99) mg/dL Calcium 8.8 (8.4-10.2) mg/dL Phosphorus 3.9 (2.5-4.5) mg/dL Magnesium 1.8 (1.6-2.3) mg/dL Total Bilirubin 0.1 L (0.2-1.3) mg/dL AST 18 (14-36) U/L ALT 18 (4-34) U/L Alkaline Phosphatase 58 (38-126) U/L Lactate Dehydrogenase 333 (313-618) U/L C-Reactive Protein <0.5 (<1.0) mg/dL Total Protein 6.8 (6.3-8.2) g/dL Albumin 4.2 (3.5-5.0) g/dL Urine Color Urine Appearance (Clear) Urine pH (5.0-8.0) Ur Specific [place] (1.001-1.035) Urine Protein (Negative) Urine Glucose (UA) (Negative) Urine Ketones (Negative) Urine Blood (Negative) Urine Nitrite (Negative) Urine Bilirubin (Negative) Urine Urobilinogen (<2.0) mg/dL Ur Leukocyte Esterase (Negative) Urine RBC (0-5) /hpf Urine WBC (0-5) /hpf Ur Squamous Epith Cells (0-4) /hpf Urine Mucus (None) /hpf Coronavirus (PCR) (Not Detectd) Influenza Type A RNA Not Detected (Not Detectd) Influenza Type B (PCR) Not Detected (Not Detectd) Disposition Clinical Impression: Acute viral pharyngitis, Sore throat, Strep throat Disposition: HOME SELF-CARE Condition: Good Instructions (If sedation given, give patient instructions): Pharyngitis (ED) Is patient prescribed a controlled substance at d/c from ED?: No Referrals: Nonstaff,Physician [Primary Care Provider] - 1-2 days
[2021-10-08 04:38] LABS: Basophils # (A) 0.1 k/uL (0-0.2); Basophils % (A) 1 %; Eosinophils # (A) 0.2 k/uL (0-0.7); Eosinophils % (A) 3 %; HCT 39.8 % (34.0-46.0); HGB 13.4 gm/dL (11.4-16.0); Lymphocytes # (A) 2.9 k/uL (1.0-4.8); Lymphocytes % (A) 32 %; MCH 30.6 pg (25.0-35.0); MCHC 33.6 g/dL (31.0-37.0); Mean Platelet Volume 6.8; Monocytes # (A) 0.3 k/uL (0-1.0); Monocytes % (A) 3 %; Neutrophils # (A) 5.4 k/uL (1.3-7.7); Neutrophils % (A) 60 %; Platelet Count 295 k/uL (150-450); RBC 4.38 m/uL (3.80-5.40); RDW 12.3 % (11.5-15.5)
[2021-10-08 04:46] LABS: Appearance,Urine Clear (Clear); Bilirubin,Urine Negative (Negative); Blood,Urine Small (Negative); Color,Urine Yellow; Glucose,Urine (UA) Negative (Negative); Ketones,Urine Negative (Negative); Leukocyte Esterase,Urine Trace (Negative); Mucus,Urine Rare /hpf; Nitrite,Urine Negative (Negative); Protein,Urine Trace (Negative); RBC,Urine 4 /hpf (0-5); Specific Gravity,Urine 1.034 (1.001-1.035); Squamous Epithelial Cell,Urine 2 /hpf (0-4); Urobilinogen,Urine <2.0 mg/dL (<2.0); WBC,Urine 4 /hpf (0-5)
[2021-10-08 04:49] LABS: ALT 18 U/L (4-34); AST 18 U/L (14-36); African American GFR (CKD) >90 (>60 ml/min/1.73 sqM); Albumin 4.2 g/dL (3.5-5.0); Alkaline Phosphatase 58 U/L (38-126); Anion Gap 9 mmol/L; Blood Urea Nitrogen 15 mg/dL (7-17); C Reactive Protein <0.5 mg/dL (<1.0); Calcium 8.8 mg/dL (8.4-10.2); Carbon Dioxide 20 mmol/L (22-30); Chloride 108 mmol/L (98-107); Glucose 131 mg/dL (74-99); LDH 333 U/L (313-618); Magnesium 1.8 mg/dL (1.6-2.3); Non-African American GFR(CKD) >90 (>60 ml/min/1.73 sqM); Phosphorus 3.9 mg/dL (2.5-4.5); Potassium 3.9 mmol/L (3.5-5.1); Sodium 137 mmol/L (137-145); Total Bilirubin 0.1 mg/dL (0.2-1.3); Total Protein 6.8 g/dL (6.3-8.2)
--- NOTE | 2021-10-08 04:49 | XR ---
EXAMINATION TYPE: XR chest 1V portable DATE OF EXAM: 10/08/2021 COMPARISON: 10/07/2019 HISTORY: Chest pain TECHNIQUE: FINDINGS: Heart and mediastinum are normal. Lungs are clear. Diaphragm is normal. Bony thorax appears normal. IMPRESSION: Normal chest. No change.
[2021-10-08] MEDS ORDERED: AMOXIC-POT CLAV 875MG STARTER PACK 2 TAB BTL PO STA (05:44)
[2021-10-08] MEDS ORDERED: AMOXIC-POT CLAV 875-125MG 1 EACH TAB PO STA (05:44)
[2021-10-08 06:02] VITALS: BP 119/88; PULSE 79; TEMP 98.9
== END 2021-10-08 06:01 | disposition home or self-care (01) ==
LOC: EC 03:11
DX: J02.0 Streptococcal pharyngitis (principal); E07.9 Disorder of thyroid, unspecified; F41.9 Anxiety disorder, unspecified; F31.9 Bipolar disorder, unspecified; F17.290 Nicotine dependence, other tobacco product, uncomplicated; Z88.2 Allergy status to sulfonamides; Z79.899 Other long term (current) drug therapy; Z20.822 Contact with and (suspected) exposure to COVID-19
CPT/HCPCS: 36415; 80053; 83615; 83735; 84100; 85025; 86140; 81001; 87502; 87635; 71045; 99283; 96374; 96375 ×3; 96361 ×2; J2270; J1100; J2405; J1885

== ENCOUNTER 2022-01-08 15:22 | Emergency (ER) | payer OTHER ==
[2022-01-08 16:36] VITALS: PULSE 84
[2022-01-08 17:28] LABS: Basophils # (A) 0.1 k/uL (0-0.2); Basophils % (A) 1 %; Eosinophils # (A) 0.2 k/uL (0-0.7); Eosinophils % (A) 2 %; HCT 38.9 % (34.0-46.0); HGB 13.9 gm/dL (11.4-16.0); Lymphocytes # (A) 2.5 k/uL (1.0-4.8); Lymphocytes % (A) 30 %; MCH 31.9 pg (25.0-35.0); MCHC 35.7 g/dL (31.0-37.0); MCV 89.4 fL (80.0-100.0); Mean Platelet Volume 6.9; Monocytes # (A) 0.3 k/uL (0-1.0); Monocytes % (A) 3 %; Neutrophils # (A) 5.2 k/uL (1.3-7.7); Neutrophils % (A) 63 %; Platelet Count 289 k/uL (150-450); RBC 4.35 m/uL (3.80-5.40); RDW 11.6 % (11.5-15.5); WBC 8.3 k/uL (3.8-10.6)
[2022-01-08 17:29] LABS: Appearance,Urine Cloudy (Clear); Bilirubin,Urine Negative (Negative); Blood,Urine Trace (Negative); Color,Urine Light Yellow; Glucose,Urine (UA) Negative (Negative); Ketones,Urine 1+ (Negative); Leukocyte Esterase,Urine Negative (Negative); Nitrite,Urine Negative (Negative); Protein,Urine Negative (Negative); RBC,Urine 2 /hpf (0-5); Specific Gravity,Urine 1.009 (1.001-1.035); Squamous Epithelial Cell,Urine 8 /hpf (0-4); Urobilinogen,Urine <2.0 mg/dL (<2.0); WBC,Urine 3 /hpf (0-5)
[2022-01-08 17:44] LABS: ALT 22 U/L (4-34); AST 21 U/L (14-36); African American GFR (CKD) >90 (>60 ml/min/1.73 sqM); Albumin 4.6 g/dL (3.5-5.0); Alkaline Phosphatase 62 U/L (38-126); Anion Gap 13 mmol/L; Blood Urea Nitrogen 11 mg/dL (7-17); Calcium 9.2 mg/dL (8.4-10.2); Carbon Dioxide 20 mmol/L (22-30); Chloride 106 mmol/L (98-107); Glucose 124 mg/dL (74-99); Non-African American GFR(CKD) >90 (>60 ml/min/1.73 sqM); Potassium 3.4 mmol/L (3.5-5.1); Sodium 139 mmol/L (137-145); Total Bilirubin 0.7 mg/dL (0.2-1.3)
[2022-01-08] MEDS ORDERED: SODIUM CHLORIDE 0.9% 1,000 ML IV STA (19:17)
[2022-01-08] MEDS ORDERED: ONDANSETRON 4 MG/2 ML VIAL IVP STA (19:18)
[2022-01-08] MEDS ORDERED: KETOROLAC 15 MG/ML 1 ML VIAL IVP STA (19:18)
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
[2022-01-08] MEDS ORDERED: HYDROmorphone 0.5 MG/0.5 ML SYRINGE IVP STA (20:56)
[2022-01-08 21:06] VITALS: BP 108/71; RESP 16; TEMP 97.8
--- NOTE | 2022-01-08 21:10 | ED ---
Female Urogenital HPI - General Chief complaint: Urogenital Stated complaint: Bladder infection,Pain Time Seen by Provider: 01/08/22 17:53 Source: patient Mode of arrival: ambulatory Limitations: no limitations - History of Present Illness Initial comments: Patient is a 36-year-old female with a past medical history of kidney stone, thyroid disorder, tubal ligation and presents to the emergency department with a chief complaint of right flank pain. Patient states she was diagnosed with kidney stone and UTI at [facility] last week. States she discharged with Keflex however was not sent home with any pain medication. Reports resolution of burning with urination however presents today for severe right sided pain. Has not attempted [id number] pain medication at home. States today she has been having trouble with urinary stream. Denies burning with urination, increased urinary frequency/urgency, blood in the urine. Repo rts nausea without vomiting which she thinks is due to Keflex. Denies fever and chills. - Related Data Previous Rx's Medication Instructions Recorded Ibuprofen [Motrin] 800 mg PO Q6HR PRN #30 tab 01/08/22 Ondansetron Odt [Zofran Odt] 4 mg PO Q8HR PRN #10 tab 01/08/22 Allergies Allergy/AdvReac Type Severity Reaction Status Date / Time Sulfa (Sulfonamide Allergy Severe Anaphylaxis Verified 01/08/22 20:31 Antibiotics) sulfamethoxazole Allergy Anaphylaxis Verified 01/08/22 20:31 [From Bactrim] trimethoprim [From Bactrim] Allergy Anaphylaxis Verified 01/08/22 20:31 Review of Systems ROS Statement: Those systems with pertinent positive or pertinent negative responses have been documented in the HPI. ROS Other: All systems not noted in ROS Statement are negative. Past Medical History Past Medical History: Thyroid Disorder Additional Past Medical History / Comment(s): kidney stone hospitalization History of Any Multi-Drug Resistant Organisms: None Reported Past Surgical History: Tubal Ligation Additional Past Surgical History / Comment(s): d&c Past Anesthesia/Blood Transfusion Reactions: No Reported Reaction Past Psychological History: Anxiety, Bipolar, Depression, Schizophrenia Smoking Status: Current some day smoker, Vaper Past Alcohol Use History: Occasional Past Drug Use History: None Reported - Past Family History Mother Family Medical History: Cancer, Diabetes Mellitus General Exam Limitations: no limitations General appearance: alert, in no apparent distress Respiratory exam: Present: normal lung sounds bilaterally. Absent: respiratory distress, wheezes, rales, rhonchi, stridor Cardiovascular Exam: Present: regular rate, normal rhythm, normal heart sounds. Absent: systolic murmur, diastolic murmur, rubs, gallop, clicks GI/Abdominal exam: Present: soft, normal bowel sounds. Absent: distended, tenderness, guarding, rebound, rigid Back exam: Present: normal inspection, full ROM, CVA tenderness (R). Absent: CVA tenderness (L), paraspinal tenderness, vertebral tenderness Neurological exam: Present: alert, oriented X3, CN II-XII intact Psychiatric exam: Present: normal affect, normal mood Skin exam: Present: warm, dry, intact, normal color. Absent: rash Course Vital Signs 01/08/22 01/08/22 16:33 20:36 Temperature 98.7 F 97.8 F Pulse Rate 84 84 Respiratory 20 16 Rate Blood Pressure 111/73 108/71 O2 Sat by Pulse 100 98 Oximetry Medical Decision Making - Medical Decision Making This is a 36-year-old female presenting with right flank pain. No tachycardia or fever. Laboratory studies obtained and are relatively unremarkable. No leukocytosis. There is normal kidney function. Urinalysis shows trace blood with normal red blood cells. There are 1+ ketones. CT of abdomen and pelvis without contrast was obtained which shows bilateral nonobstructing renal calculi without evidence of hydronephrosis or obstructive uropathy. There is bilateral medullary nephrocalcinosis and enlarged uterus likely with underlying fibroid changes. Patient given Toradol, Zofran, saline bolus. On reevaluation she reports no change in pain. She was then given Dilaudid with some pain relief. Results discussed the patient. At this time there are no diagnostic studies to explain patient's symptoms. Patient adamant that she did not injure herself. Patient will be discharged with Motrin and Zofran. She will need to establish care with a primary care provider who can further evaluate and manage her symptoms. R eturn parameters discussed. Dr. Sawant is my attending. - Lab Data Result diagrams: 01/08/22 17:16 01/08/22 17:16 Lab Results 01/08/22 01/08/22 01/08/22 Range/Units 17:05 17:16 17:16 WBC 8.3 (3.8-10.6) k/uL RBC 4.35 (3.80-5.40) m/uL Hgb 13.9 (11.4-16.0) gm/dL Hct 38.9 (34.0-46.0) % MCV 89.4 (80.0-100.0) fL MCH 31.9 (25.0-35.0) pg MCHC 35.7 (31.0-37.0) g/dL RDW 11.6 (11.5-15.5) % Plt Count 289 (150-450) k/uL MPV 6.9 Neutrophils % 63 % Lymphocytes % 30 % Monocytes % 3 % Eosinophils % 2 % Basophils % 1 % Neutrophils # 5.2 (1.3-7.7) k/uL Lymphocytes # 2.5 (1.0-4.8) k/uL Monocytes # 0.3 (0-1.0) k/uL Eosinophils # 0.2 (0-0.7) k/uL Basophils # 0.1 (0-0.2) k/uL Sodium 139 (137-145) mmol/L Potassium 3.4 L (3.5-5.1) mmol/L Chloride 106 (98-107) mmol/L Carbon Dioxide 20 L (22-30) mmol/L Anion Gap 13 mmol/L BUN 11 (7-17) mg/dL Creatinine 0.55 (0.52-1.04) mg/dL Est GFR (CKD-EPI)AfAm >90 (>60 ml/min/1.73 sqM) Est GFR (CKD-EPI)NonAf >90 (>60 ml/min/1.73 sqM) Glucose 124 H (74-99) mg/dL Calcium 9.2 (8.4-10.2) mg/dL Total Bilirubin 0.7 (0.2-1.3) mg/dL AST 21 (14-36) U/L ALT 22 (4-34) U/L Alkaline Phosphatase 62 (38-126) U/L Total Protein 7.0 (6.3-8.2) g/dL Albumin 4.6 (3.5-5.0) g/dL Urine Color Light Yellow Urine Appearance Cloudy H (Clear) Urine pH 6.0 (5.0-8.0) Ur Specific [place] 1.009 (1.001-1.035) Urine Protein Negative (Negative) Urine Glucose (UA) Negative (Negative) Urine Ketones 1+ H (Negative) Urine Blood Trace H (Negative) Urine Nitrite Negative (Negative) Urine Bilirubin Negative (Negative) Urine Urobilinogen <2.0 (<2.0) mg/dL Ur Leukocyte Esterase Negative (Negative) Urine RBC 2 (0-5) /hpf Urine WBC 3 (0-5) /hpf Ur Squamous Epith Cells 8 H (0-4) /hpf Disposition Clinical Impression: Right flank pain, Nausea, Urine troubles Disposition: HOME SELF-CARE Condition: Good Instructions (If sedation given, give patient instructions): Flank Pain (ED) Additional Instructions: Take medication as directed. Follow-up with primary care provider in one to 2 days. Return to the emergency department experience new, concerning, or worsening symptoms. Prescriptions: Ibuprofen [Motrin] 800 mg PO Q6HR PRN #30 tab PRN Reason: Pain Ondansetron Odt [Zofran Odt] 4 mg PO Q8HR PRN #10 tab PRN Reason: Nausea Is patient prescribed a controlled substance at d/c from ED?: No Referrals: None,Stated [Primary Care Provider] - 1-2 days Time of Disposition: 21:10
== END 2022-01-08 21:19 | disposition home or self-care (01) ==
LOC: EC 15:22
DX: R10.9 Unspecified abdominal pain (principal); R11.0 Nausea; N39.9 Disorder of urinary system, unspecified; E07.9 Disorder of thyroid, unspecified; F17.200 Nicotine dependence, unspecified, uncomplicated; Z88.2 Allergy status to sulfonamides
CPT/HCPCS: 51798; 36415; 80053; 85025; 81001; 74176; 99284; J2405; J1885; J1170

== ENCOUNTER 2022-03-09 09:56 | Emergency (ER) | payer OTHER ==
[2022-03-09 10:09] VITALS: TEMP 98.2
[2022-03-09] MEDS ORDERED: KETOROLAC 15 MG/ML 1 ML VIAL IVP STA (10:54)
[2022-03-09 11:16] LABS: Basophils % (A) 1 %; Eosinophils # (A) 0.2 k/uL (0-0.7); Eosinophils % (A) 3 %; HGB 13.1 gm/dL (11.4-16.0); Lymphocytes # (A) 1.4 k/uL (1.0-4.8); Lymphocytes % (A) 27 %; MCH 31.3 pg (25.0-35.0); MCHC 34.6 g/dL (31.0-37.0); MCV 90.5 fL (80.0-100.0); Mean Platelet Volume 7.1; Monocytes # (A) 0.2 k/uL (0-1.0); Monocytes % (A) 5 %; Neutrophils # (A) 3.3 k/uL (1.3-7.7); Neutrophils % (A) 64 %; Platelet Count 357 k/uL (150-450); RDW 12.8 % (11.5-15.5); WBC 5.2 k/uL (3.8-10.6)
[2022-03-09 11:17] LABS: Appearance,Urine Clear (Clear); Bilirubin,Urine Negative (Negative); Blood,Urine Negative (Negative); Color,Urine Yellow; Glucose,Urine (UA) Negative (Negative); Ketones,Urine Trace (Negative); Leukocyte Esterase,Urine Negative (Negative); Nitrite,Urine Negative (Negative); Protein,Urine Trace (Negative); Specific Gravity,Urine 1.034 (1.001-1.035)
[2022-03-09 11:32] LABS: Cocaine Screen,Urine Not Detected (NotDetected); Opiate Screen,Urine Detected (NotDetected); Phencyclidine Screen,Urine Not Detected (NotDetected); Urn Cannabinoid Scrn Detected (NotDetected)
[2022-03-09 11:33] LABS: Amphetamine Screen,Urine Not Detected (NotDetected); Barbiturate Screen,Urine Not Detected (NotDetected); Benzodiazepines Screen,Urine Not Detected (NotDetected); Methadone Screen, Urine Not Detected (NotDetected); Oxycodone Screen, Urine Not Detected (NotDetected); Tricyclic Antidepressant,Urine Not Detected (NotDetected)
[2022-03-09 11:38] LABS: ALT 34 U/L (4-34); AST 29 U/L (14-36); African American GFR (CKD) >90 (>60 ml/min/1.73 sqM); Alcohol <10 mg/dL; Alkaline Phosphatase 68 U/L (38-126); Anion Gap 6 mmol/L; Blood Urea Nitrogen 15 mg/dL (7-17); Calcium 8.9 mg/dL (8.4-10.2); Carbon Dioxide 22 mmol/L (22-30); Chloride 111 mmol/L (98-107); Glucose 98 mg/dL (74-99); Non-African American GFR(CKD) >90 (>60 ml/min/1.73 sqM); Potassium 4.1 mmol/L (3.5-5.1); Sodium 139 mmol/L (137-145); Total Bilirubin 0.4 mg/dL (0.2-1.3); Total Protein 6.5 g/dL (6.3-8.2)
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
[2022-03-09] MEDS ORDERED: ACETAMINOPHEN TAB 325 MG TAB PO STA (13:22)
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
[2022-03-09 15:34] VITALS: BP 114/76; PULSE 75; RESP 16
== END 2022-03-09 13:51 | disposition home or self-care (01) ==
LOC: EC 09:56
DX: M25.561 Pain in right knee (principal); R10.9 Unspecified abdominal pain; F17.200 Nicotine dependence, unspecified, uncomplicated; F12.90 Cannabis use, unspecified, uncomplicated; Z88.1 Allergy status to other antibiotic agents; Z88.2 Allergy status to sulfonamides; V89.2XXA Person injured in unspecified motor-vehicle accident, traffic, initial encounter; Y92.410 Unspecified street and highway as the place of occurrence of the external cause
CPT/HCPCS: 96374; 99285; 36415; 80053; 85025; 81003; 81025; 80306; 80320; 72170; 73562; 71046; 72125; 70450; 74177; J1885; Q9967; 99284

== ENCOUNTER 2023-10-09 13:55 | Emergency (ER) | payer OTHER ==
--- NOTE | 2023-10-09 14:09 | ED ---
Eye Problem HPI - General Stated complaint: L eye pain Time Seen by Provider: 10/09/23 14:05 Source: patient, RN notes reviewed - History of Present Illness Initial comments: 38-year-old female presents emergency department with chief complaint of left eye pain. Patient states that this afternoon she had a foreign body sensation in her left eye with associated tearing of the eye. Patient denies pain with extraocular eye movement or blurry vision or double vision or photophobia. Denies known foreign body in the eye. Denies contact use. 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 No other acute complaints at this time. - Related Data Previous Rx's Medication Instructions Recorded Ibuprofen [Motrin] 800 mg PO Q6HR PRN #30 tab 01/08/22 Ondansetron Odt [Zofran Odt] 4 mg PO Q8HR PRN #10 tab 01/08/22 methocarbamoL [Robaxin-750] 750 mg PO TID #20 tab 03/09/22 Allergies Allergy/AdvReac Type Severity Reaction Status Date / Time Sulfa (Sulfonamide Allergy Severe Anaphylaxis Verified 03/09/22 10:09 Antibiotics) sulfamethoxazole Allergy Anaphylaxis Verified 03/09/22 10:09 [From Bactrim] trimethoprim [From Bactrim] Allergy Anaphylaxis Verified 03/09/22 10:09 Review of Systems ROS Statement: Those systems with pertinent positive or pertinent negative responses have been documented in the HPI. ROS Other: All systems not noted in ROS Statement are negative. Past Medical History Past Medical History: Thyroid Disorder Additional Past Medical History / Comment(s): kidney stone hospitalization History of Any Multi-Drug Resistant Organisms: None Reported Past Surgical History: Tubal Ligation Additional Past Surgical History / Comment(s): d&c Past Anesthesia/Blood Transfusion Reactions: No Reported Reaction Past Psychological History: Anxiety, Bipolar, Depression, Schizophrenia Smoking Status: Current some day smoker, Vaper Past Alcohol Use History: Occasional Past Drug Use History: Marijuana - Past Family History Mother Family Medical History: Cancer, Diabetes Mellitus General Exam - General Exam Comments Initial Comments: Visual Physical Exam Vital signs reviewed General: Well-appearing, nontoxic, no acute distress. Head: Normocephalic, atraumatic Eyes: PERRLA, EOMI ENT: Airway patent Chest: Nonlabored breathing Skin: No visual rash, normal skin tone Neuro: Alert and oriented 3 Musculoskeletal: No gross abnormalities General appearance: alert, in no apparent distress Head exam: Present: atraumatic, normocephalic, normal inspection Expanded Eyelids: Normal Inspection: Bilateral Pupils: Regular, Round: Bilateral Sclera/Conjunctival: Injection: Left Anterior chamber: Normal Inspection: Bilateral Visual acuity (R) = 20/: 20 Visual acuity (L) = 20/: 20 With correction: No IOP (R) in mmH IOP (L) in mmH IOP measured with: [employer] ENT exam: Present: normal exam, mucous membranes moist Neck exam: Present: normal inspection. Absent: tenderness, meningismus, lymphadenopathy Respiratory exam: Present: normal lung sounds bilaterally. Absent: respiratory distress, wheezes, rales, rhonchi, stridor Cardiovascular Exam: Present: regular rate, normal rhythm, normal heart sounds. Absent: systolic murmur, diastolic murmur, rubs, gallop, clicks GI/Abdominal exam: Present: soft, normal bowel sounds. Absent: distended, tenderness, guarding, rebound, rigid Extremities exam: Present: normal inspection, full ROM, normal capillary refill. Absent: tenderness, pedal edema, joint swelling, calf tenderness Back exam: Present: normal inspection Neurological exam: Present: alert, oriented X3, CN II-XII intact Psychiatric exam: Present: normal affect, normal mood Skin exam: Present: warm, dry, intact, normal color. Absent: rash Course Vital Signs 10/09/23 10/09/23 14:38 17:37 Temperature 98.7 F 98.4 F Pulse Rate 81 80 Respiratory 18 18 Rate Blood Pressure 112/71 115/82 O2 Sat by Pulse 98 98 Oximetry Medical Decision Making - Medical Decision Making Was pt. sent in by a medical professional or institution (, PA, PURCHASING ASSISTANT, urgent care, hospital, or penitentiary...) When possible be specific @ -No Did you speak to anyone other than the patient for history (EMS, parent, family, police, friend...)? What history was obtained from this source @ -No Did you review nursing and triage notes (agree or disagree)? Why? @ -I reviewed and agree with nursing and triage notes Were old charts reviewed (outside hosp., previous admission, EMS record, old EKG, old radiological studies, urgent care reports/EKG's, penitentiary records)? Report findings @ -No old charts were reviewed Differential Diagnosis (chest pain, altered mental status, abdominal pain women, abdominal pain men, vaginal bleeding, weakness, fever, dyspnea, syncope, headache, dizziness, GI bleed, back pain, seizure, CVA, palpatations, mental health, musculoskeletal)? @ -foreign body in eye, conjunctivitis, corneal abrasion, scleral abrasion, glaucoma, keratitis, this list is not all inclusive EKG interpreted by me (3pts min.). @ -none X-rays interpreted by me (1pt min.). @ -None done CT interpreted by me (1pt min.). @ -None done U/S interpreted by me (1pt. min.). @ -None done What testing was considered but not performed or refused? (CT, X-rays, U/S, labs)? Why? @ -None What meds were considered but not given or refused? Why? @ -None Did you discuss the management of the patient with other professionals (professionals i.e. , PA, PURCHASING ASSISTANT, lab, RT, psych nurse, long term care social worker, title lawyer, teacher, probation officer, telephonic nurse case manager)? Give summary @ -No Was smoking cessation discussed for >3mins.? @ -No Was critical care preformed (if so, how long)? @ -No Were there social determinants of health that impacted care today? How? (Homelessness, low income, unemployed, alcoholism, drug addiction, transportation, low edu. Level, literacy, decrease access to med. care, detention, rehab)? @ -No Was there de-escalation of care discussed even if they declined (Discuss DNR or withdrawal of care, Hospice)? DNR status @ -No What co-morbidities impacted this encounter? (DM, HTN, Smoking, COPD, CAD, Cancer, CVA, ARF, Chemo, Hep., AIDS, mental health diagnosis, sleep apnea, morbid obesity)? @ -None Was patient admitted / discharged? Hospital course, mention meds given and route, prescriptions, significant lab abnormalities, going to OR and other pertinent info. @ -Discharge. 2-year-old female with eye pain. On examination patient noted to have mildly injected left eye. She denies photophobia, there is no pain with extraocular eye movement. Visual acuity is intact. Patient's intraocular pressure is not within normal range. Proparacaine drops were used to anesthetize the eye and topical fluorescein was used to create direct visualization with a de anda lamp reveals a corneal abrasion. Patient provided with topical antibiotic drops in the emergency department and instructed to complete antibiotics 4 times a day over the next 5 days. All questions answered at bedside and strict return parameters discussed with patient she is verbalized understanding. Discussed with Dr. Chirinos. Undiagnosed new problem with uncertain prognosis? @ -No Drug Therapy requiring intensive monitoring for toxicity (Heparin, Nitro, Insulin, Cardizem)? @ -No Were any procedures done? @ -No Diagnosis/symptom? @ -Corneal abrasion, conjunctivitis Acute, or Chronic, or Acute on Chronic? @ -Acute Uncomplicated (without systemic symptoms) or Complicated (systemic symptoms)? @ -Uncomplicated Side effects of treatment? @ -No Exacerbation, Progression, or Severe Exacerbation? @ -No Poses a threat to life or bodily function? How? (Chest pain, [place], [place], pneumonia, PE, COPD, DKA, ARF, appy, cholecystitis, CVA, Diverticulitis, Homicidal, Suicidal, threat to staff... and all critical care pts) @ -No Disposition Clinical Impression: Corneal abrasion Disposition: HOME SELF-CARE Condition: Good Instructions (If sedation given, give patient instructions): Corneal Abrasion (ED) Is patient prescribed a controlled substance at d/c from ED?: No Referrals: Raya Aquino MD [Primary Care Provider] - 1-2 days Time of Disposition: 16:14
[2023-10-09 14:41] VITALS: RESP 18
[2023-10-09] MEDS: FLUORESCEIN STRIPS 1 MG STRIP RIGHT EYE ONE (15:55)
[2023-10-09] MEDS: PROPARACAINE 0.5% OPHTH DROPS 15 ML BTL RIGHT EYE STA (15:55)
[2023-10-09] MEDS: TOBRA-DEXAMET 0.3-0.1% OPHTH DROPS 2.5 ML BTL LEFT EYE STA (17:30)
[2023-10-09 17:39] VITALS: BP 115/82; PULSE 80; TEMP 98.4
== END 2023-10-09 17:39 | disposition home or self-care (01) ==
LOC: EC 13:55
DX: S05.02XA Injury of conjunctiva and corneal abrasion without foreign body, left eye, initial encounter (principal); H10.9 Unspecified conjunctivitis; F17.290 Nicotine dependence, other tobacco product, uncomplicated; Z88.1 Allergy status to other antibiotic agents; Z88.2 Allergy status to sulfonamides; Z88.8 Allergy status to other drugs, medicaments and biological substances; X58.XXXA Exposure to other specified factors, initial encounter
CPT/HCPCS: 99283